=== PATIENT | female | born 1990 | race Caucasian/White ===

== ENCOUNTER 2020-02-01 10:02 | Outpatient (CLI) | payer OTHER, SELFPAY ==
--- NOTE | ~2020-02-01 | US_ITS ---
EXAMINATION: US OB <= 14 weeks fetus DATE: 02/01/2020 14:09 INDICATION: Irregular last menstrual period gestational dating. TECHNIQUE: Real-time transabdominal obstetric ultrasound. FINDINGS: No prior studies for comparison. The uterus measures 12.8 x 5.9 x 6.6 cm. There is an intrauterine gestational sac, with pole id entified. The crown rump length measures 3.33 cm, which correlates with a estimated gestational age of 10 weeks 2 days. heart tones are identified measuring 171 BPM. Right ovary is unremarkable measuring 3.5 x 2.3 x 2.1 cm. Left ovary is not visualized. IMPRESSION: 1. SL IUP with an EGA of 10 weeks, 2 days (EDC by current ultrasound of 08/31/2020). Reviewed, dictated and finalized at location A. IMPRESSION: 1. SL IUP with an EGA of 10 weeks, 2 days (EDC by current ultrasound of 020).
[2020-02-01 10:34] LABS: Hematocrit 38.7 % (37.0-47.0); Hemoglobin 12.9 g/dL (12.0-15.0); Mean Corpuscular HGB Conc 33.3 g/dl (32-36); Mean Corpuscular Hemoglobin 30.4 pg (26-34); Mean Corpuscular Volume 91.1 fl (80-100); Mean Platelet Volume 9.6 fl (7.4-10.4); Platelet Count Result 236 k/mm3 (150-375); Red Blood Count 4.25 M/mm3 (4.2-5.4); White Blood Count 8.5 K/mm3 (4.5-10.0)
[2020-02-01 11:30] LABS: HIV 1/2 Ab P24 Ag Result Negative (Negative)
[2020-02-01 11:31] LABS: Hepatitis B Surface Antigen Negative (Negative); Rubella IgG Antibody 19.6 IU/ML
[2020-02-02 16:07] LABS: Rapid Plasma Reagin Non-Reactive (NonReactive)
== END 2020-02-01 10:03 | disposition home or self-care (01) ==
PROVIDERS: PCP Family Medicine; Visit Provider Obstetrics & Gynecology
DX: Z36.89 Encounter for other specified antenatal screening (principal); Z3A.10 10 weeks gestation of pregnancy
CPT/HCPCS: 36415; 76801; 85027; 86592; 86703; 86762; 86850; 86900; 86901; 87340; G0432

== ENCOUNTER 2020-04-02 09:19 | Outpatient (CLI) | payer OTHER, SELFPAY ==
[2020-04-02 10:22] LABS: Blood Urea Nitrogen 7 mg/dL (7-17); Calcium 9.2 mg/dL (8.4-10.2); Carbon Dioxide 25 mmol/L (22-30); Chloride 104 mmol/L (98-107); Estimated Glomerular Filt Rate > 60; Glucose 84 mg/dL (65-105); Magnesium 1.7 mg/dL (1.6-2.3); Potassium 3.9 mmol/L (3.4-5.0); Sodium 136 mmol/L (137-145)
== END 2020-04-02 09:20 | disposition home or self-care (01) ==
LOC: ANHLAB 09:22
PROVIDERS: PCP Family Medicine; Visit Provider Obstetrics & Gynecology
DX: R00.2 Palpitations (principal)
CPT/HCPCS: 36415; 80048; 83735; 84443

== ENCOUNTER 2020-05-24 15:41 | Outpatient (CLI) | payer OTHER, SELFPAY ==
[2020-05-24 17:55] LABS: Hematocrit 37.7 % (37.0-47.0); Hemoglobin 12.7 g/dL (12.0-15.0)
[2020-05-24 18:06] LABS: Glucose 1 Hour PP 50gm Dose 144 mg/dL
[2020-05-24 18:47] LABS: HIV 1/2 Ab P24 Ag Result Negative (Negative)
== END 2020-05-24 15:42 | disposition home or self-care (01) ==
PROVIDERS: PCP Family Medicine; Visit Provider Obstetrics & Gynecology
DX: Z34.90 Encounter for supervision of normal pregnancy, unspecified, unspecified trimester (principal); Z3A.00 Weeks of gestation of pregnancy not specified
CPT/HCPCS: 36415; 82947; 85014; 85018; 86703; G0432

== ENCOUNTER 2020-08-07 08:27 | Inpatient (IN) | payer OTHER, SELFPAY ==
[2020-08-07] VITALS (125 sets, daily range): BP systolic 65–160; BP diastolic 40–130; PULSE 58–193; TEMP 36.1–36.6; O2SAT 98–100; BMI 46.5
--- NOTE | 2020-08-07 08:27 | LDADM ---
This patient, Gabriela Agudelo, was admitted to Labor/Delivery/Recovery 109 on 08/07/20 at 08:27. Plans for labor, pain management and were discussed with patient. Patient/family oriented to hospital policies and general routines including ID bracelet, bed and alarms, visiting hours, pain management, procedures, bathroom and other care routines, personal items, smoking policy, room service/diet and guest tray routines, security routines, and visiting hours. Patient/Family are encouraged to report perceived risks to care and to ask questions if they do not understand what they are told or what they should do. See OBIX for further documentation.
--- NOTE | 2020-08-07 08:45 | WPDOBADMIT ---
Obstetrics - Admit Note Admission Note: record reviewed. Additions to the history and/or subsequent changes in the physical findings follow. 30 y/o at 37 3/7 weeks here with gush of fluid. Irregular contractions. GBS neg. RomPlus positive. AVSS NST reactive TOCO: irregular contractions ABD soft, nontender, gravid, vertex EXT nontender Cervix 2/50/-2. Gross ROM. A: IUP at term with SROM. P: Expectant management. Augment labor as needed.
[2020-08-07 10:10] LABS: Basophils Percent Auto 0.1 % (0.2-1.2); Hematocrit 38.2 % (37.0-47.0); Hemoglobin 12.8 g/dL (12.0-15.0); Immature Granulocyte Absolute 0.04 K/mm3 (0.00-0.031); Immature Granulocyte Percent A 0.4 % (0-0.5); Lymphocytes Absolute Auto 1.52 K/mm3 (0.9-3.2); Lymphocytes Percent Auto 13.7 % (18.3-44.2); Mean Corpuscular HGB Conc 33.5 g/dl (32-36); Mean Corpuscular Hemoglobin 30.5 pg (26-34); Mean Corpuscular Volume 91.2 fl (80-100); Mean Platelet Volume 11.3 fl (7.4-10.4); Monocytes Absolute Auto 0.8 K/mm3 (0.1-0.6); Monocytes Percent Auto 6.9 % (2.6-8.5); Neutrophils Absolute Auto 8.8 K/mm3 (1.3-6.7); Neutrophils Percent Auto 78.9 % (45.5-73.1); Platelet Count Result 204 k/mm3 (150-375); Red Blood Count 4.19 M/mm3 (4.2-5.4); Red Cell Distribution Width 13.8 % (11.5-14.5); White Blood Count 11.1 K/mm3 (4.5-10.0)
[2020-08-07 10:25] LABS: Alanine Aminotransferase 13 U/L (4-35); Albumin Level 3.6 g/dL (3.5-5.1); Alkaline Phosphatase 211 U/L (38-126); Anion Gap 9 mmol/L (8-16); Aspartate Amino Transferase 21 U/L (14-36); Bilirubin,Total 0.3 mg/dL (0.2-1.3); Blood Urea Nitrogen 10 mg/dL (7-17); Calcium 9.2 mg/dL (8.4-10.2); Carbon Dioxide 23 mmol/L (22-30); Chloride 108 mmol/L (98-107); Estimated CRCL calculation 150 ml/min; Estimated Glomerular Filt Rate > 60; Glucose 79 mg/dL (65-105); Potassium 4.2 mmol/L (3.4-5.0); Sodium 140 mmol/L (137-145); Uric Acid 4.5 mg/dL (2.5-7.5)
--- NOTE | 2020-08-07 10:31 | WPDANESEPP ---
Anes - Eval Pre Procedure Procedure: labor epidural Date/Time: 08/07/20 10:31 Preop Diagnosis: labor pain Pre Op Diagnosis: SROM Patient Data Age: 30 Gender: F Height: 1.73 m Weight: 139 kg Last Vital Signs Temp 36.3 C L 08/07/20 08:50 Pulse 80 08/07/20 10:31 BP 136/89 08/07/20 10:31 Allergies Allergy/AdvReac Type Severity Reaction Status Date / Time No Known Drug Allergies Allergy Unknown Other Verified 08/13/18 07:38 Home Medications Medication Instructions Recorded Confirmed Type [id number] fumarate-FA 1 tablet PO DAILY 07/28/20 08/07/20 History [] Laboratory Tests 08/07/20 08/07/20 08/07/20 09: 09:27 09:59 WBC 11.1 K/mm3 H K/mm3 (4.5-10.0) RBC 4.19 M/mm3 L M/mm3 (4.2-5.4) Hgb 12.8 g/dL g/dL (12.0-15.0) Hct 38.2 % % (37.0-47.0) MCV 91.2 fl fl (80-100) MCH 30.5 pg pg (26-34) MCHC 33.5 g/dl g/dl (32-36) RDW 13.8 % % (11.5-14.5) Plt Count 204 k/mm3 k/mm3 (150-375) MPV 11.3 fl H fl (7.4-10.4) Immature Gran % (Auto) 0.4 % % (0-0.5) Neut % (Auto) 78.9 % H % (45.5-73.1) Lymph % (Auto) 13.7 % L % (18.3-44.2) Price % (Auto) 6.9 % % (2.6-8.5) Eos % (Auto) 0.0 % % (0-4.4) Baso % (Auto) 0.1 % L % (0.2-1.2) Lymph # (Auto) 1.52 K/mm3 K/mm3 (0.9-3.2) [place] # (Auto) 0.8 K/mm3 H K/mm3 (0.1-0.6) Eos # (Auto) 0.0 K/mm3 K/mm3 (0-0.3) Baso # (Auto) 0.0 K/mm3 K/mm3 (0.0-0.1) Abs Immat Gran (auto) 0.04 K/mm3 H K/mm3 (0.00-0.031) Absolute Neuts (auto) 8.8 K/mm3 H K/mm3 (1.3-6.7) Absolute Nucleated RBC 0.0 K/mm3 K/mm3 (0.0-0.012) Nucleated RBC % 0.0 % % (0.0-0.2) Sodium 140 mmol/L mmol/L (137-145) Potassium 4.2 mmol/L mmol/L (3.4-5.0) Chloride 108 mmol/L H mmol/L (98-107) Carbon Dioxide 23 mmol/L mmol/L (22-30) Anion Gap 9 mmol/L mmol/L (8-16) BUN 10 mg/dL mg/dL (7-17) Creatinine 0.70 mg/dL mg/dL (0.7-1.0) Estim Creat Clear Calc 150 ml/min ml/min Estimated GFR > 60 (59 - ) Glucose 79 mg/dL mg/dL (65-105) Uric Acid 4.5 mg/dL mg/dL (2.5-7.5) Calcium 9.2 mg/dL mg/dL (8.4-10.2) Total Bilirubin 0.3 mg/dL mg/dL (0.2-1.3) AST 21 U/L U/L (14-36) ALT 13 U/L U/L (4-35) Alkaline Phosphatase 211 U/L H U/L (38-126) Total Protein 6.0 g/dL L g/dL (6.3-8.2) Albumin 3.6 g/dL g/dL (3.5-5.1) RPR Pending Patient hx anesthesia problems: none Family hx anesthesia problems: none PMFSH Family History Family History Mother Hypertension Father Family history of diabetes mellitus in first degree relative Social History Social History Smoking status: Never smoker Second hand tobacco smoke exposure: No Alcohol intake: current Substance use: never Living arrangements: with family Occupation/Education: occupation Gender identity (if verbalized by the patient): Female Sexual Orientation (if Verbalized by the Patient): Straight or Heterosexual Spiritual care concerns: No Agree to blood products: Yes Exam Day of Procedure 08/07/20 10:31 Patient weight: obese Heart: regular rate and rhythm Lungs: normal air movement Airway: Mallampati scale class II Neurological: alert and oriented
[2020-08-07] MEDS: LACTATED RINGERS 1,000 ML 125 ML IV CONT ×3 (12:39→16:37)
[2020-08-07] MEDS: OXYTOCIN 30 UNITS/NS 500 ML 30 UNITS/500 ML BAG IV CONT (14:10)
[2020-08-07] MEDS: SODIUM CHLORIDE 0.9% IV 300 ML 180 ML I-UTERINE (15:37)
[2020-08-07 16:33] LABS: Add Urine Microscopic? YES; Appearance Urine Clear (Clear); Bilirubin Urine Negative (Negative); Blood Urine 3+ (Negative); Color Urine Straw (Yellow); Glucose Urine UA Negative (Negative); Ketones Urine 1+ mg/dL (Negative); Leukocyte Esterase Ur Negative LEU/UL (NEGATIVE); Mucus Urine Rare /lpf; Nitrate Urine Negative (Negative); Protein Urine Negative (Negative); RBC Urine 21-50 /hpf (0-2); Specific Grav Ur 1.012 (1.001-1.035); Squamous Epithelial Cell Urine Rare /hpf (Few); Urobilinogen Urine Negative mg/dL (<2.0)
[2020-08-07] MEDS: ACETAMINOPHEN 500 MG TABLET 1000 MG PO (18:16)
--- NOTE | 2020-08-07 21:14 | PM.OBPRVD ---
OB - Delivery Note Procedure Delivery date: 08/07/20 Induction method: none Delivery monitor: external FHT, external uterine and internal uterine Route of delivery: Laceration description: Perineal - 2nd Degree Delivery repair: vicryl (3-0) Specimen: Yes (cord blood) Estimated blood loss (mL): 140 Anesthesia type: Epidural Disposition: PACU Complications: None Narrative: 30 y/o at 37 3/7 weeks gestation who presented to the hospital after a gush of fluid. RomPlus was positive and she was admitted. She received an epidural for pain control. Labor was augmented with oxytocin. Her labor progressed and her cervix dilated completely. She pushed with good effort and delivered the 's head to the perineum, followed by the body. The nose and mouth were bulb suctioned. After a delay, the cord was clamped and cut. The infant was handed off the field. Cord blood was collected. The placenta delivered spontaneously and was grossly normal in appearance. The usual 3 vessel cord was noted. A second degree midline perineal laceration was sustained. This was reapproximated using 3 0 Vicryl in the usual layered fashion. Excellent hemostasis resulted as did excellent reapproximation of the normal anatomy. Needle and instrument counts were correct. The patient was taken to recovery room in stable condition. The infant went to the nursery in stable condition. I was present and scrubbed for the entire delivery. Baby Date of : 08/07/20 Time of : 20:46 Weeks of gestation at delivery: 37 gender: Male Weight (pounds): 5 Weight (ounces): 11 presentation: vertex position: Left Occiput Anterior cord vessel description: 3 Vessels score one minute: 8 score five minutes: 9
--- NOTE | 2020-08-07 21:16 | PM.OBDSVD ---
DS: Admitting Diagnosis Admitting Diagnosis Admitting Diagnosis: SROM DS: Discharge Diagnosis Discharge Diagnosis (1) (normal spontaneous vaginal delivery): Code(s): O80 - Encounter for full-term uncomplicated delivery Status: Acute OB - DS: Summary OB Procedures : None OB Procedures Intrapartum: Spontaneous Vag Delivery OB Procedures: : None DS: Data Data Completed and Pending Labs on day of discharge: Labs from last 24 hours 08/07/20 08/07/20 08/07/20 15:42 09:59 09:27 WBC RBC Hgb Hct MCV MCH MCHC RDW Plt Count MPV Immature Gran % (Auto) Neut % (Auto) Lymph % (Auto) [place] % (Auto) Eos % (Auto) Baso % (Auto) Lymph # (Auto) [place] # (Auto) Eos # (Auto) Baso # (Auto) Abs Immat Gran (auto) Absolute Neuts (auto) Absolute Nucleated RBC Nucleated RBC % Sodium 140 Potassium 4.2 Chloride 108 H Carbon Dioxide 23 Anion Gap 9 BUN 10 Creatinine 0.70 Estim Creat Clear Calc 150 Estimated GFR > 60 Glucose 79 Uric Acid 4.5 Calcium 9.2 Total Bilirubin 0.3 AST 21 ALT 13 Alkaline Phosphatase 211 H Total Protein 6.0 L Albumin 3.6 Urine Color Straw Urine Appearance Clear Urine pH 6.0 Ur Specific [place] 1.012 Urine Protein Negative Urine Glucose (UA) Negative Urine Ketones 1+ H Ur Blood (Man) 3+ H Urine Nitrate Negative Urine Bilirubin Negative Urine Urobilinogen Negative Ur Leukocyte Esterase Negative Urine RBC 21-50 H Urine WBC 4-6 H Ur Squamous Epith Cells Rare Urine Mucus Rare RPR Blood Type A Positive Antibody Screen Negative 08/07/20 08/07/20 09:27 09:27 WBC 11.1 H RBC 4.19 L Hgb 12.8 Hct 38.2 MCV 91.2 MCH 30.5 MCHC 33.5 RDW 13.8 Plt Count 204 MPV 11.3 H Immature Gran % (Auto) 0.4 Neut % (Auto) 78.9 H Lymph % (Auto) 13.7 L [place] % (Auto) 6.9 Eos % (Auto) 0.0 Baso % (Auto) 0.1 L Lymph # (Auto) 1.52 [place] # (Auto) 0.8 H Eos # (Auto) 0.0 Baso # (Auto) 0.0 Abs Immat Gran (auto) 0.04 H Absolute Neuts (auto) 8.8 H Absolute Nucleated RBC 0.0 Nucleated RBC % 0.0 Sodium Potassium Chloride Carbon Dioxide Anion Gap BUN Creatinine Estim Creat Clear Calc Estimated GFR Glucose Uric Acid Calcium Total Bilirubin AST ALT Alkaline Phosphatase Total Protein Albumin Urine Color Urine Appearance Urine pH Ur Specific [place] Urine Protein Urine Glucose (UA) Urine Ketones Ur Blood (Man) Urine Nitrate Urine Bilirubin Urine Urobilinogen Ur Leukocyte Esterase Urine RBC Urine WBC Ur Squamous Epith Cells Urine Mucus RPR Pending Blood Type Antibody Screen Discharge Plan Discharge Attending physician on discharge: Casey Barcenas Discharging Clinician: Casey Barcenas Patient Disposition: Home, Self-Care Activity: pelvic rest Diet: regular Discharge Instructions: Call or return if temperature above 100.4? F, increased abdominal pain, increased vaginal bleeding or any new problems. Stand Alone Forms: General Discharge Information Follow-up/Referrals: Casey Barcenas MD [Physician] - (6 weeks) Discharge Medications: New ibuprofen 600 mg tablet 600 mg PO Q6H PRN (Reason: cramps) Qty: 30 RF: 0 No Action 28-800 mg-mcg Tablet 1 tablet PO DAILY RF: 0 Date of admission: 08/07/20 08:27 Primary Care Provider: Arley Land Admitting Provider: Casey Barcenas Attending physician on admission: Casey Barcenas
[2020-08-07] MEDS: OXYTOCIN 30 UNITS/NS 500 ML 30 UNITS/500 ML BAG 125 UNITS IV CONT (21:27)
[2020-08-07] MEDS: IBUPROFEN 600 MG TABLET PO (22:32)
[2020-08-07] MEDS: WITCH HAZEL 40 PADS 1 PAD TOPICAL (23:07)
[2020-08-07] MEDS: BENZOCAINE 20% AER SPR (*SP) 56 GM CAN 1 SPRAY TOPICAL (23:07)
--- NOTE | 2020-08-07 23:50 | PC.NURSE ---
This patient, Gabriela Agudelo, was received from Labor and Delivery on 08/07/20 at 2343. Personal belongings list checked and signed. Patient/family oriented to unit policies and routines
[2020-08-08 00:31] VITALS: BP 143/88; PULSE 92; RESP 18; TEMP 36.4; O2SAT 98
[2020-08-08 04:30] LABS: Hematocrit 36.5 % (37.0-47.0); Hemoglobin 12.1 g/dL (12.0-15.0)
[2020-08-08] MEDS: IBUPROFEN 600 MG TABLET PO ×3 (05:36→22:01)
[2020-08-08 07:45] VITALS: BP 133/89; PULSE 84; RESP 16; TEMP 36.9; O2SAT 98
[2020-08-08] MEDS: MULTIVIT/MIN/PREN/FOL AC/IRON TABLET 1 TAB PO (08:12)
--- NOTE | 2020-08-08 08:28 | WPDANLDPN2 ---
Anes-Prog Note L&D Date/Time: 08/08/20 08:28 Comfortable throughout: labor and delivery Neuraxial method: epidural Epidural/Spinal procedure site: clean & non-tender Neuro status: Neuro function grossly intact. Cardiovascular status: normal Respiratory status: normal Airway patency: baseline Mental status: baseline Post-Op hydration status: normal Vital Signs: Last Vital Signs Temp 36.4 C 08/08/20 00:31 Pulse 92 08/08/20 00:31 Resp 18 08/08/20 00:31 BP 143/88 H 08/08/20 00:31 Pulse Ox 98 08/08/20 00:31 Pain score (VAS): 11/20 I/O: Intake & Output 08/07/20 08/08/20 08/08/20 23:59 07:59 15:59 Intake Total 1500 Output Total 685 Balance 815 Post-procedural complaints: none Patient feedback: Patient satisfied with anesthetic care.
--- NOTE | 2020-08-08 10:02 | PC.NURSE ---
Patient instructed on viewing the discharge video Mother & Baby Care, The First Two Weeks . Patient was given the opportunity and encouraged to ask questions. Patient verbalized understanding of information shared and has been given the mother/baby guide for home reference.
[2020-08-08 11:43] LABS: Rapid Plasma Reagin Non-Reactive (NonReactive)
--- NOTE | 2020-08-08 12:00 | P.PNOB_ITS ---
OB - PN: Subj Subjective Date/time seen: 08/08/20 12:00 Narrative: Pain OK. Would like circumcision for son. OB - PN: Obj Data Labs CBC & Chem 7: 08/08/20 04:10 08/07/20 09:59 Labs: Laboratory Results - last 24 hr 08/07/20 08/07/20 08/07/20 09:27 09:27 15:42 Hgb Hct Urine Color Straw Urine Appearance Clear Urine pH 6.0 Ur Specific [place] 1.012 Urine Protein Negative Urine Glucose (UA) Negative Urine Ketones 1+ H Ur Blood (Man) 3+ H Urine Nitrate Negative Urine Bilirubin Negative Urine Urobilinogen Negative Ur Leukocyte Esterase Negative Urine RBC 21-50 H Urine WBC 4-6 H Ur Squamous Epith Cells Rare Urine Mucus Rare RPR Non-reactive Blood Type A Positive Antibody Screen Negative 08/08/20 04:10 Hgb 12.1 Hct 36.5 L Urine Color Urine Appearance Urine pH Ur Specific [place] Urine Protein Urine Glucose (UA) Urine Ketones Ur Blood (Man) Urine Nitrate Urine Bilirubin Urine Urobilinogen Ur Leukocyte Esterase Urine RBC Urine WBC Ur Squamous Epith Cells Urine Mucus RPR Blood Type Antibody Screen OB - PN A/P Plan Comments: A: PPD#1, doing well. P: Routine care. Reviewed circ. Exam Psych: Other: AVSS ABD soft, nontender, fundus firm EXT nontender
[2020-08-08 19:07] VITALS: BP 145/90; PULSE 85; RESP 18; TEMP 36.3; O2SAT 98
[2020-08-09] MEDS: IBUPROFEN 600 MG TABLET PO ×2 (05:55→15:32)
[2020-08-09 07:50] VITALS: BP 138/77; PULSE 86; RESP 16; TEMP 37.2; O2SAT 100
[2020-08-09] MEDS: MULTIVIT/MIN/PREN/FOL AC/IRON TABLET 1 TAB PO (08:16)
[2020-08-09] MEDS: WITCH HAZEL 40 PADS 1 PAD TOPICAL (08:21)
[2020-08-09] MEDS: BENZOCAINE 20% AER SPR (*SP) 56 GM CAN 1 SPRAY TOPICAL (08:22)
--- NOTE | 2020-08-09 08:49 | PM.OBPNVD ---
OB - PN: Subj Subjective Date/time seen: 08/09/20 08:49 Narrative: Pain OK. Would like to go home. OB - PN: Obj Data Labs CBC & Chem 7: 08/08/20 04:10 08/07/20 09:59 Labs: Laboratory Results - last 24 hr 08/07/20 09:27 RPR Non-reactive OB - PN A/P Plan Comments: A: PPD#2, doing well. P: Home to f/u 6 weeks. Exam Psych: Other: AVSS ABD soft, nontender, fundus firm EXT nontender
--- NOTE | 2020-08-09 12:00 | PC.NURSE ---
PT introductions made and plan of care discussed per post , pain management, breast feeding, daily care activities and pending discharge to home. PT verbalized understanding of such care.
[2020-08-09] MEDS: DOCUSATE SODIUM 100 MG CAPSULE PO (15:32)
[2020-08-09] MEDS: LANOLIN (LANSINOH) 7.5 GM CREAM 1 APPLIC TOPICAL (15:33)
--- NOTE | 2020-08-09 16:15 | PC.NURSE ---
PT received discharge instructions per protocol and verbalized understanding of such instructions.
[2020-08-12 09:26] VITALS: BP 142/83; PULSE 83; RESP 20; O2SAT 99
== END 2020-08-09 16:41 | disposition home or self-care (01) | DRG 807 ==
LOC: ANHLDR 21:17 → ANHOB2 08-08 00:01
PROVIDERS: Admitting Provider Obstetrics & Gynecology; PCP Family Medicine; Visit Provider Obstetrics & Gynecology
DX: O99.214 Obesity complicating childbirth (principal); Z37.0 Single live birth; Z3A.37 37 weeks gestation of pregnancy; E66.9 Obesity, unspecified; O36.8330 Maternal care for abnormalities of the fetal heart rate or rhythm, third trimester, not applicable or unspecified; Z23 Encounter for immunization; O70.1 Second degree perineal laceration during delivery
CPT/HCPCS: 36415; 80053; 81001; 84550; 85014; 85018; 85025; 86592; 86850; 86900; 86901; 90471; 90686; A9270; G0008; J2590; J2795; J7030; J7120

== ENCOUNTER 2022-10-09 18:12 | Emergency (ER) | payer OTHER, SELFPAY ==
[2022-10-09 18:15] VITALS: BP 131/75; PULSE 99; RESP 16; TEMP 37.8; O2SAT 100
--- NOTE | 2022-10-09 19:08 | ED.URI ---
HPI - URI/Sore Throat General Chief Complaint: Upper Respiratory Infection Stated Complaint: COUGH/CHEST CONGESTION/PAIN/HEADACHE Time Seen by Provider: 10/09/22 19:08 Source: patient, RN notes reviewed and old records reviewed Mode of arrival: ambulatory Limitations: no limitations History of Present Illness HPI Narrative: 32-year-old female presents to the [facility] with complaints of chest congestion, cough, headache since Saturday. Concern for influenza. Patient is [address] Hernandez Related Data Home Medications Medication Instructions Recorded Confirmed ondansetron HCl 4 mg tablet 4 mg PO DIRECTED 10/09/22 10/09/22 Allergies Allergy/AdvReac Type Severity Reaction Status Date / Time No Known Drug Allergies Allergy Unknown Other Verified 10/09/22 19:05 Review of Systems Review of Systems: All systems reviewed & are unremarkable except as noted in HPI and below Constitutional: Constitutional: Reports as per HPI and Reports fever(s) Eyes: Eyes: Reports no additional eye complaints ENT: Reports as per HPI Cardiovascular: Cardiovascular: Reports no additional cardiovascular complaints, Denies chest pain and Denies dyspnea Respiratory: Respiratory: Reports as per HPI, Denies chest congestion, Reports cough and Denies dyspnea Gastrointestinal: Gastrointestinal: Reports no additional gastrointestinal complaints Musculoskeletal: Musculoskeletal: Reports no additional musculoskeletal complaints Integumentary/Breasts: Skin/Breast: Reports system reviewed and no additional complaints, except as docu Neurologic: Reports system reviewed and no additional complaints, except as documented Psychiatric: Psychiatric: Reports no additional psychiatric complaints Allergic/Immunologic: Allergic/Immunologic: Reports no additional allergic/immunologic complaints PMFSH Past Medical History Medical History Degenerative arthritis of knee, bilateral Surgical History Surgical History H/O hand surgery 2011 History of cholecystectomy 2014 Family History Family History Mother Hypertension Father Family history of diabetes mellitus in first degree relative Social History Social History Smoking status: Never smoker Second hand tobacco smoke exposure: No Alcohol intake: current Substance use: never Additional occupation/education comments: [employer] Gender identity (if verbalized by the patient): Female Sexual Orientation (if Verbalized by the Patient): Straight or Heterosexual Spiritual care concerns: No Agree to blood products: Yes Comments At the time of my signature, I reviewed and agree with the nursing past medical, surgical, social, and family history. There is no relevant family history pertinent to the patient complaint. Exam Const: General: cooperative, healthy appearing, comfortable, no acute distress, well developed, alert and average body habitus Nutritional Appearance: average body habitus Orientation/consciousness: patient oriented x3 Limitations: no limitations HENMT: Head: normal to inspection Ears: hearing grossly normal bilaterally Face/Nose/Sinus: Normal external nose present, Normal nares present, Normal nasal mucous membranes and turbinates present and normal facial exam Face and sinus: normal facial exam Mouth: Yes Normal oral and palatal mucosa present, Yes lip normal and Yes moist mucous membranes Throat: posterior oropharynx normal and uvula midline Eyes: General: appearance normal, both eyes and all related structures Alignment and Position: alignment normal Periorbital: periorbital findings normal Conjunctivae: conjunctivae normal Pupils: Equal, round and reactive pupils present EOM: EOMs intact bilaterally Neck:
== END 2022-10-09 19:28 | disposition home or self-care (01) ==
PROVIDERS: Emergency Provider Nurse Practitioner
DX: O99.512 Diseases of the respiratory system complicating pregnancy, second trimester (principal); Z3A.15 15 weeks gestation of pregnancy; J10.1 Influenza due to other identified influenza virus with other respiratory manifestations; O99.891 Other specified diseases and conditions complicating pregnancy; M17.0 Bilateral primary osteoarthritis of knee
CPT/HCPCS: 87804; 99213; G0463

== ENCOUNTER 2023-03-12 17:05 | Inpatient (IN) | payer OTHER, SELFPAY ==
[2023-03-12] VITALS (62 sets, daily range): BP systolic 116–146; BP diastolic 53–95; PULSE 58–95; TEMP 36.7–37; O2SAT 94–100; BMI 45.1
--- NOTE | 2023-03-12 17:05 | LDADM ---
This patient, Gabriela Agudelo, was admitted to Labor/Delivery/Recovery 108 on 03/12/23 at 17:05. Plans for labor, pain management and were discussed with patient. Patient/family oriented to hospital policies and general routines including ID bracelet, bed and alarms, visiting hours, pain management, procedures, bathroom and other care routines, personal items, smoking policy, room service/diet and guest tray routines, security routines, and visiting hours. Patient/Family are encouraged to report perceived risks to care and to ask questions if they do not understand what they are told or what they should do. See OBIX for further documentation.
[2023-03-12] MEDS: LACTATED RINGERS 1,000 ML 125 ML IV CONT ×2 (19:21→20:58)
[2023-03-12 19:36] LABS: Hematocrit 39.1 % (37.0-47.0); Immature Granulocyte Absolute 0.04 K/mm3 (0.00-0.031); Immature Granulocyte Percent A 0.4 % (0-0.5); Immature Platelet Fraction Pct 10.6 % (0.9-11.2); Lymphocytes Absolute Auto 1.94 K/mm3 (0.9-3.2); Lymphocytes Percent Auto 18.7 % (18.3-44.2); Mean Corpuscular HGB Conc 33.2 g/dl (32-36); Mean Corpuscular Hemoglobin 30.6 pg (26-34); Mean Platelet Volume 12.1 fl (7.4-10.4); Monocytes Absolute Auto 0.7 K/mm3 (0.1-0.6); Monocytes Percent Auto 6.4 % (2.6-8.5); Neutrophils Absolute Auto 7.8 K/mm3 (1.3-6.7); Neutrophils Percent Auto 74.5 % (45.5-73.1); Platelet Count Result 191 k/mm3 (150-375); Red Blood Count 4.25 M/mm3 (4.2-5.4); Red Cell Distribution Width 13.8 % (11.5-14.5); White Blood Count 10.4 K/mm3 (4.5-10.0)
[2023-03-12 19:51] LABS: Platelet Estimate Adequate (Adequate); Schistocytes None Seen (NORMAL)
--- NOTE | 2023-03-12 19:59 | WPDANESEPPF ---
Anes - Initial Pre Proc Eval Procedure: labor epidural Date/Time: 03/12/23 19:59 Surgeon: Casey Barcenas MD Pre Op Diagnosis: labor pain Pre Op Diagnosis: Contractions Patient Data Age: 33 Gender: F Height: 1.73 m Weight: 134.5 kg Last Vital Signs O2 Del Method Room Air 03/12/23 19:29 Allergies Allergy/AdvReac Type Severity Reaction Status Date / Time No Known Drug Allergies Allergy Unknown Other Verified 10/09/22 19:05 Home Medications Medication Instructions Recorded Confirmed Type vit#24-iron amino acid 1 tablet PO DAILY 02/12/23 03/12/23 History chelat-folic acid 30 mg-975 mcg tablet Laboratory Tests 03/12/23 19:21 WBC 10.4 H K/mm3 (4.5-10.0) RBC 4.25 M/mm3 (4.2-5.4) Hgb 13.0 g/dL (12.0-15.0) Hct 39.1 % (37.0-47.0) MCV 92.0 fl (80-100) MCH 30.6 pg (26-34) MCHC 33.2 g/dl (32-36) RDW 13.8 % (11.5-14.5) Plt Count 191 k/mm3 (150-375) MPV 12.1 H fl (7.4-10.4) Immature Gran % (Auto) 0.4 % (0-0.5) Neut % (Auto) 74.5 H % (45.5-73.1) Lymph % (Auto) 18.7 % (18.3-44.2) [place] % (Auto) 6.4 % (2.6-8.5) Eos % (Auto) 0.0 % (0-4.4) Baso % (Auto) 0.0 L % (0.2-1.2) Lymph # (Auto) 1.94 K/mm3 (0.9-3.2) [place] # (Auto) 0.7 H K/mm3 (0.1-0.6) Eos # (Auto) 0.0 K/mm3 (0-0.3) Baso # (Auto) 0.0 K/mm3 (0.0-0.1) Abs Immat Gran (auto) 0.04 H K/mm3 (0.00-0.031) Absolute Neuts (auto) 7.8 H K/mm3 (1.3-6.7) Absolute Nucleated RBC 0.0 K/mm3 (0.0-0.012) Nucleated RBC % 0.0 % (0.0-0.2) Platelet Estimate Adequate (Adequate) % Immature Plt Fraction 10.6 % (0.9-11.2) Schistocytes None seen (NORMAL) RPR Pending Patient hx anesthesia problems: none Family hx anesthesia problems: none Results Review: All pre-operative results and documents have been reviewed as part of the pre-operative evaluation. [facility] Past Medical History Medical History Degenerative arthritis of knee, bilateral Surgical History Surgical History H/O hand surgery 2011 History of cholecystectomy 2014 Family History Family History Mother Hypertension Father Family history of diabetes mellitus in first degree relative Social History Social History Smoking status: Never smoker Second hand tobacco smoke exposure: No Alcohol intake: current Substance use: never Lack of Transportation: No Lack of Food: Never True Current Housing: I Have Housing Concerned About Future Housing: No Difficulty Paying Gas/Electric Bills: No Difficulty Paying for Meds: No Currently Unemployed: No Education: Bachelor's Degree Difficulty w/ Childcare or Family Care: No Living arrangements: with family Occupation/Education: occupation Additional occupation/education comments: [employer] Gender identity (if verbalized by the patient): Female Sexual Orientation (if Verbalized by the Patient): Straight or Heterosexual Spiritual care concerns: No Agree to blood products: Yes Anes - Eval Final PreProcedure Day of Procedure 03/12/23 19:59 Patient weight: morbidly obese ASA classification: III Anesthetic plan: proceed Anesthesia type and monitoring: regional epidural and standard monitoring Results Review: All pre-operative results and documents have been reviewed as part of the pre-operative evaluation. Informed Consent: The patient's anesthetic plan and its attendant risks and benefits were discussed with the patient/family/POA. Questions were solicited and answers provided to the satisfaction of the patient/family/POA.
[2023-03-13] VITALS (245 sets, daily range): BP systolic 96–147; BP diastolic 49–104; PULSE 38–112; RESP 16–20; TEMP 36.4–36.9; O2SAT 73–100
[2023-03-13] MEDS: ONDANSETRON INJ 4 MG/2 ML VIAL IV PUSH (00:21)
[2023-03-13] MEDS: LACTATED RINGERS 1,000 ML 125 ML IV CONT ×2 (04:09→12:26)
[2023-03-13] MEDS: OXYTOCIN 30 UNITS/NS 500 ML 30 UNITS/500 ML BAG IV CONT (08:37)
[2023-03-13 10:03] LABS: Rapid Plasma Reagin Non-Reactive (NonReactive)
--- NOTE | 2023-03-13 11:37 | WPDOBADMIT ---
Obstetrics - Admit Note Admission Note: Late entry from 0900 on 03/13/23 record reviewed. Additions to the history and/or subsequent changes in the physical findings follow. 33 y/o at 37 5/7 weeks here with contractions. Cervix changed from 1 to 4 cm, and labor was diagnosed. She received an epidural for pain control. GBS neg. AVSS NST reactive TOCO: contractions every 3 min ABD soft, nontender, gravid, vertex EXT nontender Cervix 5/50/-2. AROM with clear fluid. IUPC placed. Bedside ultrasound by me confirmed vertex presentation. A: IUP at term with labor. P: Augment labor as needed. Anticipate .
--- NOTE | 2023-03-13 11:42 | PM.OBPNLAB ---
Pain Control Date/time seen: 03/13/23 11:42 Comments: Comfortable with epidural. Pelvic Exam Dilation (cm): 6 Effacement (%): 50 station: -2 Contractions Monitor mode: Internal Contraction frequency: 3 Contraction pattern: Regular Status status: Category l Assessment and Plan Plan: continuous present management
--- NOTE | 2023-03-13 14:15 | PM.OBPRVD ---
OB - Delivery Note Procedure Delivery date: 03/13/23 Procedure: Induction method: None Delivery augmentation: Rupture of Membranes and Pitocin Delivery monitor: External FHT, External Uterine and Internal Uterine Route of delivery: Laceration Description: Perineal - 2nd Degree and Vaginal Delivery repair: vicryl (3-0) Specimen: Yes (Cord blood) Quantitative Blood Loss (ml): 140 Anesthesia type: Epidural Disposition: PACU Complications: None Narrative: 33 y/o at 37 5/7 weeks gestation who presented to the hospital with contractions. Labor was diagnosed. She received an epidural for pain control. Labor was subsequently augmented with oxytocin. Amniotomy was performed with return of clear fluid. Her labor progressed and her cervix dilated completely. She pushed with good effort and delivered the 's head to the perineum, followed by the body. The nose and mouth were bulb suctioned. After a delay, the cord was clamped and cut. The infant was handed off the field. Cord blood was collected. The placenta delivered spontaneously and was grossly normal in appearance. The usual 3 vessel cord was noted. A second degree midline perineal laceration was sustained. This was reapproximated using 3 0 Vicryl in the usual layered fashion. Two figure of eight sutures of the same material were used to reapproximate a right labial laceration. Excellent hemostasis resulted as did excellent reapproximation of the normal anatomy. Needle and instrument counts were correct. The patient was taken to recovery room in stable condition. The infant went to the nursery in stable condition. I was present and scrubbed for the entire delivery. [place] [facility] Date of : 03/13/23 Time of : 13:56 Weeks of gestation at delivery: 37 gender: Female Weight (pounds): 7 Weight (ounces): 11 presentation: vertex position: Right Occiput Anterior Placenta delivery description: Spontaneous and Normal Configuration Cord Vessel Description: 3 Vessels, Nuchal Cord and Delayed Cord Clamping score one minute: 8 score five minutes: 9
--- NOTE | 2023-03-13 14:15 | PM.OBDSVD ---
DS: Admitting Diagnosis Discharge Date 03/15/23 Admitting Diagnosis IUP at 37 5/7 weeks Labor DS: Discharge Diagnosis Discharge Diagnosis (1) (normal spontaneous vaginal delivery): Code(s): O80 - Encounter for full-term uncomplicated delivery Status: Acute OB - DS: Summary OB Procedures : NST and Ultrasound OB Procedures Intrapartum: Spontaneous Vag Delivery OB Procedures: : None Time Spent with Patient Time attestation: Total time spent providing and/or coordinating discharge services: DS: Data Data Completed and Pending Labs on day of discharge: Labs from last 24 hours 03/12/23 19:21 WBC 10.4 H RBC 4.25 Hgb 13.0 Hct 39.1 MCV 92.0 MCH 30.6 MCHC 33.2 RDW 13.8 Plt Count 191 MPV 12.1 H Immature Gran % (Auto) 0.4 Neut % (Auto) 74.5 H Lymph % (Auto) 18.7 Glynn % (Auto) 6.4 Eos % (Auto) 0.0 Baso % (Auto) 0.0 L Lymph # (Auto) 1.94 Glynn # (Auto) 0.7 H Eos # (Auto) 0.0 Baso # (Auto) 0.0 Abs Immat Gran (auto) 0.04 H Absolute Neuts (auto) 7.8 H Absolute Nucleated RBC 0.0 Nucleated RBC % 0.0 Platelet Estimate Adequate % Immature Plt Fraction 10.6 Schistocytes None seen RPR Non-reactive Blood Type A Positive Antibody Screen Negative Discharge Plan Discharge Attending physician on discharge: Casey Barcenas Discharging Clinician: Casey Barcenas Patient Disposition: Home, Self-Care Activity: pelvic rest Diet: regular Discharge Instructions: Call or return if temperature above 100.4? F, increased abdominal pain, increased vaginal bleeding or any new problems. Stand Alone Forms: General Discharge Information Follow-up/Referrals: Casey Barcenas MD [Physician] - 6 Weeks Discharge Medications: New ibuprofen 600 mg tablet 600 mg PO Q6H PRN (Reason: cramps) Qty: 30 0RF Continued Complete 30-975 mg-mcg Tablet 1 tablet PO DAILY Date of admission: 03/12/23 17:05 Primary Care Provider: PHYSICIAN,CUSTOMER SERVICE COORDINATOR Admitting Provider: Casey Barcenas Attending physician on admission: Casey Barcenas Condition: Stable
[2023-03-13] MEDS: OXYTOCIN 30 UNITS/NS 500 ML 30 UNITS/500 ML BAG 125 UNITS IV CONT (14:37)
[2023-03-13] MEDS: IBUPROFEN 600 MG TABLET PO ×2 (16:23→22:36)
[2023-03-13] MEDS: WITCH HAZEL 40 PADS 1 PAD TOPICAL (16:23)
[2023-03-13] MEDS: BENZOCAINE 20% AER SPR (*SP) 56 GM CAN 1 SPRAY TOPICAL (16:23)
--- NOTE | 2023-03-13 17:15 | PC.NURSE ---
Patient transferred to post room #277. Support person present. Oriented to unit, room, information board, rooming in, admission packet and security measures. Patient verbalizes understanding.
[2023-03-14 00:50] VITALS: BP 123/73; PULSE 92; RESP 20; TEMP 36.3
[2023-03-14] MEDS: IBUPROFEN 600 MG TABLET PO ×3 (04:08→19:43)
[2023-03-14 05:15] LABS: Hematocrit 34.7 % (37.0-47.0); Hemoglobin 11.5 g/dL (12.0-15.0)
[2023-03-14 07:55] VITALS: BP 124/64; PULSE 74; RESP 14; TEMP 36.6; O2SAT 100
--- NOTE | 2023-03-14 08:45 | PM.OBPNVD ---
OB - PN: Subj Subjective Date/time seen: 03/14/23 08:45 Narrative: Pain OK. OB - PN: Obj Data Labs 03/14/23 04:08 Labs: Laboratory Results - last 24 hr 03/12/23 03/14/23 19:21 04:08 Hgb 11.5 L Hct 34.7 L RPR Non-reactive OB - PN A/P Plan Comments: A: PPD#1, doing well. P: Routine care. Exam Psych: Other: AVSS ABD soft, nontender, fundus firm EXT nontender
--- NOTE | 2023-03-14 09:03 | WPDANLDPN2 ---
Anes-Prog Note L&D Date/Time: 03/14/23 09:03 Neuro status: Neuro function grossly intact. Vital Signs: Last Vital Signs Temp 36.3 C L 03/14/23 00:50 Pulse 92 03/14/23 00:50 Resp 20 03/14/23 00:50 BP 123/73 03/14/23 00:50 Pulse Ox 99 03/13/23 17:45 O2 Del Method Room Air 03/12/23 19:29 Pain score (VAS): 0 I/O: Intake & Output 03/13/23 03/14/23 03/14/23 23:59 07:59 15:59 Intake Total 1000 Output Total 108 Balance 892 Patient feedback: Patient satisfied with anesthetic care.
[2023-03-14] MEDS: MULTIVIT/MIN/PREN/FOL AC/IRON TABLET 1 TAB PO (10:11)
[2023-03-14 12:17] VITALS: BP 132/77; PULSE 82; RESP 16; TEMP 36.6; O2SAT 99
[2023-03-14 19:40] VITALS: BP 124/77; PULSE 66; RESP 18; TEMP 36.3
[2023-03-15] MEDS: IBUPROFEN 600 MG TABLET PO ×2 (03:50→11:00)
[2023-03-15] MEDS: WITCH HAZEL 40 PADS 1 PAD TOPICAL (03:50)
--- NOTE | 2023-03-15 05:45 | PC.NURSE ---
Patient received instruction on viewing the discharge video Mother & Baby Care, The First Two Weeks . Patient was given the opportunity and encouraged to ask questions. Patient verbalized understanding of information shared and has been given the mother/baby guide for home reference.
[2023-03-15] MEDS: MULTIVIT/MIN/PREN/FOL AC/IRON TABLET 1 TAB PO (08:46)
[2023-03-15] MEDS: DOCUSATE SODIUM 100 MG CAPSULE PO (08:46)
[2023-03-15 09:00] VITALS: BP 122/81; PULSE 79; RESP 18; TEMP 36.8; O2SAT 99
--- NOTE | 2023-03-15 09:14 | PM.OBPNVD ---
OB - PN: Subj Subjective Date/time seen: 03/15/23 09:14 Narrative: Pain OK. Would like to go home. OB - PN: Obj Data Labs 03/14/23 04:08 OB - PN A/P Plan Comments: A: PPD#2, doing well. P: Home to f/u 6 weeks. Exam Psych: Other: AVSS ABD soft, nontender, fundus firm EXT nontender
[2023-03-16 10:27] VITALS: BP 134/83; PULSE 88; RESP 18; TEMP 36.9; O2SAT 99
== END 2023-03-15 14:40 | disposition home or self-care (01) | DRG 807 ==
LOC: ANHLDR 03-13 14:31 → ANHOB2 03-13 17:18
PROVIDERS: Admitting Provider Obstetrics & Gynecology; Visit Provider Obstetrics & Gynecology
DX: O70.1 Second degree perineal laceration during delivery (principal); Z37.0 Single live birth; Z3A.37 37 weeks gestation of pregnancy
CPT/HCPCS: 36415; 85014; 85018; 85025; 85055; 86592; 86850; 86900; 86901; A9270; J2405; J2590; J2795; J7120

== ENCOUNTER 2024-06-12 13:34 | Outpatient (CLI) | payer OTHER, SELFPAY ==
--- NOTE | ~2024-06-12 | MMUS_ITS ---
EXAMINATION: MM diagnostic jeny BI w [place], US breast RT limited HISTORY: Right nipple lump for 2 months. TECHNIQUE: Additional 3-D tomosynthesis images of the breasts were performed and synthetic 2-D images were generated. CAD analysis was submitted and interpreted. High resolution Limited right breast ult rasound was performed. COMPARISON: No prior studies for comparison. BREAST PARENCHYMAL COMPOSITION: Not dense: There are scattered areas of fibroglandular density. FINDINGS: MAMMOGRAPHIC FINDINGS: There are no suspicious masses, calcifications or architectural distortion in either breast to sugges t malignancy. ULTRASOUND: Limited right breast ultrasound: There is a dilated subareolar duct. There is hypoechoic soft tissue in the duct extending to the nipple. No evidence for malignancy in the left breast. IMPRESSION: 1. Abnormal hypoechoic soft tissue in the subareolar ducts of the right breast with distally dilated ducts. 2. Recommend further evaluation with ductogram or MRI of the breast with contrast. BI-RADS Category 0: Incomplete: Needs additional imaging evaluation. Reviewed, dictated and finalized at location B. IMPRESSION: 1. Abnormal hypoechoic soft tissue in the subareolar ducts of the right breast with distally dilated ducts. 2. Recommend further evaluation with ductogram or MRI of the breast with contra st. BI-RADS Category 0: Incomplete: Needs additional imaging evaluation.
== END 2024-06-12 13:35 | disposition home or self-care (01) ==
PROVIDERS: Visit Provider Obstetrics & Gynecology
DX: R92.8 Other abnormal and inconclusive findings on diagnostic imaging of breast (principal)
CPT/HCPCS: 76642; 77062; 77066; G0279

== ENCOUNTER 2024-06-30 10:07 | Outpatient (CLI) | payer OTHER, SELFPAY ==
--- NOTE | ~2024-06-30 | MR_ITS ---
MR breast BI wo/w con 06/30/2024 11:38 CDT INDICATION: Possible intraductal mass of the right breast TECHNIQUE: MRI of the breasts perform using standard protocol pre-and post IV contrast with the follo wing sequences: Axial T2 STIR, axial T1, axial vibrant T1 with fat suppression precontrast and multip hasic postcontrast. 20 cc of MultiHance administered intravenously COMPARISON: Diagnostic and ultrasound dated 06/12/2024 FINDINGS: There are no abnormalities on the precontrast sequences. Not dense: There are scattered are as of fibroglandular density. There is mild background parenchymal enhancement. No enhancing lesion s following contrast administration. No areas of enhancement meeting threshold criteria on CAD gail sis. No evidence of signal abnormalities in the axillary or internal mammary node distributions. LEFT BREAST: No signal abnormalities on precontrast sequences. There is mild background parenchymal enhancement. No enhancing lesions following contrast administration. There is mild asymmetric enhan cement of the left nipple, although no discrete mass identified, likely of no clinical significance. No evidence of signal abnormalities in the axillary or internal mammary node distributions.] IMPRESSION: 1: Right breast: No evidence for malignancy. Asymmetric hypoechoic soft tissue seen in the subareola r ducts of the right breast on prior ultrasound are most likely benign and debris. 6 month follow-up Limited right breast ultrasound recommended. BI-RADS CATEGORY 3-PROBABLY BENIGN FINDING 2: Left breast: Negative. No evidence of malignancy. BI-RADS category 1. Recommend annual mammogr aphy follow-up. Reviewed, dictated and finalized at location B. IMPRESSION: 1: Right breast: No evidence for malignancy. Asymmetric hypoechoic soft tissue seen in the subareolar ducts of the right breast on prior ultrasound are most likely benign and debris. 6 month follow-up Limited right breast ultrasound rec ommended. BI-RADS CATEGORY 3-PROBABLY BENIGN FINDING 2: Left breast: Negative. No evidence of malignancy. BI-RADS category 1. Re commend annual mammography follow-up.
== END 2024-06-30 10:08 | disposition home or self-care (01) ==
PROVIDERS: Visit Provider Obstetrics & Gynecology
DX: N63.10 Unspecified lump in the right breast, unspecified quadrant (principal)
CPT/HCPCS: 77049; A9577; C8908

== ENCOUNTER 2024-10-26 10:36 | Emergency (ER) | payer OTHER, SELFPAY ==
[2024-10-26 11:12] VITALS: BP 143/97; PULSE 86; RESP 16; TEMP 36.6; O2SAT 100
--- NOTE | 2024-10-26 11:49 | ED_ITS ---
HPI - URI/Sore Throat General Chief Complaint: Upper Respiratory Infection Stated Complaint: Sinus Infection Symptoms/Ear Pain Time Seen by Provider: 10/26/24 11:49 Source: patient Mode of arrival: ambulatory Limitations: no limitations History of Present Illness HPI Narrative: 34-year-old female presents with complaint of sinus congestion, postnasal drainage, sinus pressure, sinus headaches for the past 5 days. Patient reports right ear pain for 1 day. Reports muffled hearing and ringing to right ear. Afebrile. Taking [id number] Mucinex to treat congestion. All systems reviewed and negative except as noted above. Related Data Home Medications ?Medication ?Instructions ?Recorded ?Confirmed ?Last Taken ?Type No Home Meds 10/26/24 Unknown History Allergies Allergy/AdvReac Type Severity Reaction Status Date / Time No Known Drug Allergies Allergy Unknown Other Verified 10/26/24 11:14 Review of Systems Review of Systems: CONSTITUTIONAL: Denies fever, chills, or sweats. EYES: Denies visual changes, redness, or discharge. ENT: Reports rhinorrhea, congestion, sinus pressure, sinus pain, right ear pain. Denies sore throat CARDIOVASCULAR: Denies chest pain, palpitations, or edema. RESPIRATORY: Denies cough or dyspnea. GASTROINTESTINAL: Denies abdominal pain, nausea, vomiting, or diarrhea. GENITOURINARY: Denies dysuria or hematuria. SKIN: Denies rash or itching. MUSCULOSKELETAL: Denies back pain, joint pain, or myalgia. NEUROLOGIC: Denies headache, numbness, or weakness. PSYCHIATRIC: Denies anxiety or depression. All other systems reviewed are negative, except as documented in HPI. [facility] Past Medical History Medical History Degenerative arthritis of knee, bilateral Surgical History Surgical History H/O hand surgery 2011 History of cholecystectomy 2014 Family History Family History Mother Hypertension Father Family history of diabetes mellitus in first degree relative Social History Social History Smoking status: Never smoker Second hand tobacco smoke exposure: No Alcohol intake: current Substance use: never Lack of Transportation: No Lack of Food: Never True Current Housing: I Have Housing Concerned About Future Housing: No Difficulty Paying Gas/Electric Bills: No Difficulty Paying for Meds: No Currently Unemployed: No Education: Bachelor's Degree Difficulty w/ Childcare or Family Care: No Living arrangements: with family Occupation/Education: occupation Additional occupation/education comments: [employer] Gender identity (if verbalized by the patient): Female Sexual Orientation (if Verbalized by the Patient): Straight or Heterosexual Spiritual care concerns: No Agree to blood products: Yes Comments At time of signature, agree with nursing past medical, surgical, social and family history. There is no relevant family history pertinent to the presenting complaint. Exam Narrative: GENERAL: This is a well-nourished, well-developed patient, in no apparent distress. HEAD: normocephalic, atraumatic. EYES: PERRL. Sclera clear/white. Vision is grossly intact. EARS: External ears normal, auditory canals clear and without drainage, erythema and bulging to right TM. Left TM is normal. No perforation bilaterally. Hearing grossly intact. NOSE: External nose normal with moderate congestion, purulent nasal drainage, erythema and swelling to bilateral nares THROAT: Mucous membranes moist, erythema postnasal drainage. No swelling or exudates. NECK: Neck supple, non-tender without lymphadenopathy, masses or thyromegaly. CARDIOVASCULAR: Regular rate and rhythm without murmurs, gallops, or rubs. RESPIRATORY: Clear to auscultation. Breath sounds equal bilaterally. No wheezes, rales, or rhonchi. SKIN: warm, Dry, intact with no suspicious lesions or rash, good texture and turgor. NEURO: awake, alert, and oriented to person, place and time. There were no obvious focal neurologic abnormalities. EXTREMITIES: No joint tenderness, effusion, or edema noted. Course Course Level of Care: Express Care Visit Vital Signs Vital signs: Vital Signs Temperature 36.6 C 10/26/24 11:12 Pulse Rate 86 10/26/24 11:12 Respiratory Rate 16 10/26/24 11:12 Blood Pressure 143/97 H 10/26/24 11:12 Pulse Oximetry 100 10/26/24 11:12 Oxygen Delivery Room Air 10/26/24 11:12 Temperature 36.6 C 10/26/24 11:12 Pulse Rate 86 10/26/24 11:12 Respiratory Rate 16 10/26/24 11:12 Blood Pressure 143/97 H 10/26/24 11:12 Pulse Oximetry 100 10/26/24 11:12 Oxygen Delivery Room Air 10/26/24 11:12 Reviewed MDM - URI/Sore Throat MDM Narrative Medical decision making narrative: Patient is aware of diagnosis, understands and agrees to treatment plan. Anticipatory guidance given. Patient agrees to follow-up as directed and is aware of reasons to seek care at the emergency department. Portions of this record may have been created with voice recognition software Differential Diagnosis Differential diagnosis: Likely upper respiratory infection, otitis media, sinusitis and viral infection Discharge Plan Discharge Clinical Impression: Acute right otitis media Sinusitis Qualifiers: Sinusitis location: maxillary Chronicity: acute Patient Disposition: Home, Self-Care Condition: Stable Instructions: Antibiotic Form, Ear Infection (ED) Additional Instructions: Take antibiotic as prescribed until gone. Taking [id number] antihistamine daily such as Claritin or Zyrtec. Take Tylenol or ibuprofen every 6-8 hours as needed for pain and fever. Drink at least 64 oz of water a day. Follow-up with your primary care physician if symptoms are not improving. Patient Language: Tamazight Prescriptions: New amoxicillin 875 mg tablet 875 mg PO Q12H 10 Days Qty: 20 0RF fluticasone propionate [Children's Flonase Allergy Rlf] 50 mcg/actuation spray,suspension 1 spray intranasal BID Qty: 16 0RF Rx Instructions: administer into each nostril No Action No Home Meds ibuprofen 600 mg tablet 600 mg PO Q6H PRN (Reason: cramps) Qty: 30 0RF Follow-up/Referrals: PHYSICIAN,HARM REDUCTION WORKER [Primary Care Provider] - Time of Disposition: 11:54
== END 2024-10-26 11:58 | disposition home or self-care (01) ==
PROVIDERS: Emergency Provider Nurse Practitioner Family
DX: H66.91 Otitis media, unspecified, right ear (principal); J01.00 Acute maxillary sinusitis, unspecified; M17.0 Bilateral primary osteoarthritis of knee
CPT/HCPCS: 99213; G0463

== ENCOUNTER 2024-12-16 10:17 | Outpatient (CLI) | payer OTHER, SELFPAY ==
--- NOTE | ~2024-12-16 | MMUS_ITS ---
EXAMINATION: MM diagnostic jeny RT w [place], US breast RT limited HISTORY: Follow-up right breast abnormality TECHNIQUE: Additional 3-D tomosynthesis images of the right breast were performed and synthetic 2-D i mages were generated. CAD analysis was submitted and interpreted. High resolution Limited right breas t ultrasound was performed. COMPARISON: 06/12/2024 BREAST PARENCHYMAL COMPOSITION: Not dense: There are scattered areas of fibroglandular density. FINDINGS: MAMMOGRAPHIC FINDINGS: There are no suspicious masses, calcifications or architectural distortion in the right breast to sug gest malignancy. ULTRASOUND: Limited right breast ultrasound: The nipple appears abnormal and somewhat heterogeneous with a signif icantly dilated duct extending to the nipple. IMPRESSION: 1. Abnormal appearance to right nipple with dilated contiguous duct measuring up to 5 mm. 2. Recommend surgical biopsy of palpable mass at the nipple. Due to the superficial location of the m ass this is not amenable to ultrasound-guided biopsy. BI-RADS category 4, suspicious findings. Reviewed, dictated and finalized at location B. X RAY CONSULTANT IMPRESSION: 1. Abnormal appearance to right nipple with dilated contiguous duct measuring u p to 5 mm. 2. Recommend surgical biopsy of palpable mass at the nipple. Due to the superfi cial location of the mass this is not amenable to ultrasound-guided biopsy. BI-RADS category 4, suspicious findings.
--- OUTSIDE RECORDS SUMMARY | 2024-12-16 11:21 | XMS_ITS | Clinical Summary ---
Author Organization [facility] Address [address] [place] [id number] Care Team Providers Care Strategic Planner Name Role Phone None, Provider MD Primary Care Provider Unavaila ble Allergies No known active allergies Medications No known medications Active Problems No known active problems Encounters Date Type Department Care Team Description 09/16/2024 9:00 AM SECURITY LEAD - 09/16/2024 10:04 AM SECURITY LEAD Hospital Encounter [facility] [place] [address] Rhea Morales DO Cough; Flu Like Symptoms Discharge Disposition: Home or Self Care (Routine Discharge) 09/16/2024 Travel from Last 3 Months Family History Medical History Relation Comments Diabetes Father Alzheimer's disease Maternal Grandfather Colon Cancer Maternal Grandfather Stroke Maternal Grandfather Breast Cancer Maternal Grandmother Hypertension Maternal Grandmother Hypertension Mother Kidney Disease Mother Epilepsy Nephew Seizures Nephew Stroke Paternal Grandfather Relation Status Comments Father Alive Maternal Grandfather Maternal Grandmother Mother Alive Nephew Other Paternal Grandfather Social History Tobacco Use Types Packs/Day Years Used Date Smoking Tobacco: Never Passive Smoke Exposure: Never Smokeless Tobacco: Never Tobacco Cessation:Counseling Given: Not Answered Alcohol Use Standard Drinks/Week Comments Yes 0 (1 standard drink = 0.6 oz pur e alcohol) socially AUDIT-C Answer Date Recorded Q1: How often do you have a drink containing alc ohol? Never 01/17/2021 Average Number of Drinks Not on file 021 Frequency of Binge Drinking Not on file 07/2021 PHQ-2 Answer Date Recorded Patient Health Questionnaire-2 Score 0 05/24/2023 Comments No Sex and Gender Information Value Date Recorded Sex Assigned at Not on file Legal Sex Female 7:11 AM SECURITY LEAD Gender Identity Not on file Sexual Orientation Not on file Last Filed Vital Signs Vital Sign Reading Time Taken Comments Blood Pressure 127/71 09/16/2024 9:03 AM SECURITY LEAD Pulse 104 09/16/2024 9:03 AM SECURITY LEAD Temperature 37.1 ??C (98.7 ??F) 09/16/2024 9:03 AM CS T Respiratory Rate 20 09/16/2024 9:03 AM SECURITY LEAD Oxygen Saturation 96% 09/16/2024 9:03 AM SECURITY LEAD Inhaled Oxygen Concentration - - Weight 133.8 kg (295 lb) 09/16/2024 9:03 AM SECURITY LEAD Height 172.7 cm (5' 8 ) 09/16/2024 9:03 AM SECURITY LEAD Body Mass Index 44.85 09/16/2024 9:03 AM SECURITY LEAD Plan of Treatment Health Maintenance Due Date Last Done Comments Cervical Cancer Screening Pa p Smear (Age 30 to 64) Every 3 Years 1990 Annual Physical 1993 Hepatitis C 2008 DTaP, Tdap and Td Vaccines ( 1 - Tdap) 2009 Hepatitis B Vaccines (1 of 3 - 19+ 3-dose series) 2009 Cervical Cancer Screening Pa p with HPV Testing (Age 30 to 64) Every 5 Years 2020 Cervical Cancer Screening with HPV 2020 PHQ-2 (Physician Mentasta) 05/24/2024 05/24/2023 COVID-19 Vaccine (1 - 2023-2 5 season) 2024 Influenza Adult (#1) 2024 PHQ-2 (Physician Mentasta) 11/11/2024 05/24/2023 HPV Vaccines Aged Out No longer eligi ble based on patient's age to complete this topic Meningococcal B Vaccine Aged Out No l onger eligible based on patient's age to complete this topic Meningococcal Vaccine Aged Out No michelle genesis eligible based on patient's age to complete this topic Pneumococcal Vaccine: Pediat rics (0 to 5 Years) and At-Risk Patients (6 to 64 Years) Aged Out No longer eligi ble based on patient's age to complete this topic RSV Immunizations Under 20 Months Aged Out No longer eligible based on patient's age to complete this topic Procedures Procedure Name Priority Date/Time Associated Diagnosis Comments XR CHEST PA+LAT STAT 09/16/2024 9:37 AM SECURITY LEAD from Last 3 Months Results * XR CHEST PA+LAT (09/16/2024 9:37 AM SECURITY LEAD) Anatomical Region Laterality Modality Chest Radiographic Liane ging 09/16/2024 9:54 AM SECURITY LEAD Impressions 09/16/2024 9:56 AM SECURITY LEAD =====IMPRESSION:===== Right lower lobe pneumonia suspected. PA lateral radiographic follow-up to resolution recommended following appropriate treatment interval. Ordered By: RHEA MORALES Interpreted By: Sean Hallman MD, 09/16/2024 9:54 AM Narrative 09/16/2024 9:56 AM SECURITY LEAD [place] [id number] Examination: Chest x-ray 2 view Exam date/time: 09/16/2024 9:28 AM Reason For Exam: ??34 female with cough, fever, crackles R base ? Comparison: None Technique: Frontal and lateral view. Findings: Normal cardiac size. Normal position of the trachea. Hilar and mediastinal contours are within normal limits. Normal pulmonary vascularity. There is airspace opacity in the right lower lobe on the lateral view suggestive of pneumonia in the appropriate clinical setting. Less prominent on the frontal view. Remaining lungs and pleural spaces are grossly clear;. No sizable effusion or pneumothorax seen. Upper abdomen is unremarkable. Procedure Note Sean Hallman MD - 09/16/[address] [address] Examination: Chest x-ray 2 view Exam date/time: 09/16/2024 9:28 AM Reason For Exam: 34 female with cough, fever, crackles R base Comparison: None Technique: Frontal and lateral view. Findings: Normal cardiac size. Normal position of the trachea. Hilar andmediastinal contours are within normal limits. Normal pulmonaryvascularity. There is airspace opacity in the right lower lobe on the lateral viewsuggestive of pneumonia in the appropriate clinical setting. Lessprominent on the frontal view. Remaining lungs and pleural spaces are grossly clear;. No sizable effusionor pneumothorax seen. Upper abdomen is unremarkable. =====IMPRESSION:===== Right lower lobe pneumonia suspected. PA lateral radiographic follow-up toresolution recommended following appropriate treatment interval. Ordered By: RHEA MORALES Interpreted By: Sean Hallman MD, 09/16/2024 9:54 AM us Rhea Morales DO GENERAL IMAGING Final Result from Last 3 Months Insurance [employer] Care Teams Strategic Planner Relationship Specialty Start Date End Date None, Provider, MD PCP - General UNKNOWN PHYSICIAN SPECIALTY 09/16/24
--- OUTSIDE RECORDS SUMMARY | 2024-12-16 11:21 | XMS_ITS | Clinical Summary ---
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[employer] Gender Identity Not on file Sexual Orientation Not on file Plan of Treatment Health Maintenance Due Date Last Done Comments Hepatitis C Virus (HCV) Screening 1990 TdaP Immunization 1990 Hepatitis B Immunization (1 of 3 - 19+ 3-dose series) 2009 Pap Smear 2011 Cervical Cancer Screening (CCS) 2020 HPV/Cotest 2020 Influenza Immunization (#1) 2024 SARS-COV-2 Immunization ( season) 2024 Respiratory Syncytial Virus (RSV) Immunization (Adult) (1 - 1-dose 75+ series) 2065 Meningococcal Immunization (ACWY) Aged Out No longer eligible based on patient's age to complete this topic Pneumococcal Immunization Combined Aged Out No longer eligible based on patient's age to complete this topic Rotavirus Immunization Aged Out No lo nger eligible based on patient's age to complete this topic
== END 2024-12-16 10:18 | disposition home or self-care (01) ==
PROVIDERS: Visit Provider Obstetrics & Gynecology
DX: R92.8 Other abnormal and inconclusive findings on diagnostic imaging of breast (principal)
CPT/HCPCS: 76642; 77061; 77065; G0279

== ENCOUNTER 2025-02-16 00:06 | Day surgery (SDC) | payer OTHER, SELFPAY ==
[2025-02-08 11:22] VITALS: BMI 43.4
--- NOTE | 2025-02-08 11:23 | PC.NURSE ---
Report to the Outpatient Waiting Room, entrance under the green pavilion located off [facility], at time _0600_ on date _[id number]_. Planned Procedure Time: _0730_.? Time changes happen often and if your time is changed the preop area will call you the afternoon before. - You and your visitor will be asked to self-screen and do not enter if you have any COVID symptoms. Please call surgeon if you need to reschedule. - A mask is optional within the hospital at this time. Patients may have clear liquids (water, carbonated beverages, clear teas, apple juice) until 3 hours prior to surgery with a maximum of 20 ounces. - No food from midnight until time of surgery and no smoking, or chewing tobacco (or any form of nicotine). No chewing gum, candy or mints. Take only the following medications with a SIP of water on the morning of surgery: ___None DO NOT STOP ANY OF YOUR OTHER PRESCRIPTION MEDICATIONS PRIOR TO SURGERY EXCEPT THE FOLLOWING Hold all vitamins and supplements for 3 days per anesthesiologist. Medications to discontinue per physician Date to take last dose Please no make-up, nail malay, hairspray, perfume, deodorant, or body powder the day of surgery.? No jewelry (including any body piercings) or valuables the day of surgery, leave them at home.? Please take a shower or bath the night before, or the morning of, surgery with an antibacterial soap.? Wear comfortable, loose fitting clothing.? - Jewelry must be removed prior to entering the operating room.? Rings and piercings that are not removed may be cut off. - The hospital will not accept responsibility for valuables.? - Please leave all valuables, including medications, at home the day of surgery. If you are going home after surgery, a licensed mobile lounge driver or operator must drive you home.? - NO public transportation without another adult if you receive anesthesia. - We recommend that an adult stay with you for 24 hours following discharge. - We also recommend that you do not drive, make important decision, drink alcoholic beverages, or take any drugs that were not prescribed by your health care provider for at least 24 hours after your discharge time. Follow any additional instructions given to you from your surgeon. Telephone instructions given to __Gabriela__and asked if any additional questions and then verbalized understanding. Patient advised to call surgeon office or pre surgery nurse liaison [phone] if any additional questions.
[2025-02-16] VITALS (7 sets, daily range): BP systolic 99–126; BP diastolic 51–90; PULSE 56–79; RESP 12–16; TEMP 36.2–36.4; O2SAT 96–99; BMI 44.0
--- OUTSIDE RECORDS SUMMARY | 2025-02-16 00:08 | XMS_ITS | Clinical Summary ---
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 Gender Identity Not on file Sexual Orientation Not on file Last Filed Vital Signs Vital Sign Reading Time Taken Comments Blood Pressure 127/71 09/16/2024 9:03 AM OPTICAL MODEL MAKER AND TESTER Pulse 104 09/16/2024 9:03 AM OPTICAL MODEL MAKER AND TESTER Temperature 37.1 C (98.7 F) 09/16/2024 9:03 AM OPTICAL MODEL MAKER AND TESTER Respiratory Rate 20 09/16/2024 9:03 AM OPTICAL MODEL MAKER AND TESTER Oxygen Saturation 96% 09/16/2024 9:03 AM OPTICAL MODEL MAKER AND TESTER Inhaled Oxygen Concentration - - Weight 133.8 kg (295 lb) 09/16/2024 9:03 AM OPTICAL MODEL MAKER AND TESTER Height 172.7 cm (5' 8 ) 09/16/2024 9:03 AM OPTICAL MODEL MAKER AND TESTER Body Mass Index 44.85 09/16/2024 9:03 AM OPTICAL MODEL MAKER AND TESTER Plan of Treatment Health Maintenance Due Date [...] 2020 Cervical Cancer Screening with HPV 2020 COVID-19 Vaccine (2023-2 5 season) 2024 PHQ-2 (Physician [place]) 11/11/2024 05/24/2023 HPV Vaccines Aged Out No [...] on patient's age to complete this topic Insurance [employer] Care Teams Brief Writer Relationship Specialty Start Date End Date None, Provider, MD PCP - General UNKNOWN PHYSICIAN SPECIALTY 09/16/24
--- OUTSIDE RECORDS SUMMARY | 2025-02-16 00:08 | XMS_ITS | Clinical Summary ---
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
--- NOTE | 2025-02-16 06:57 | WPDHPUPDATE1 ---
History and Physical Update Update Date/Time: 02/16/25 06:57 - Right nipple biopsy with excisional biopsy right mammary duct, possible total duct excision and possible adjacent tissue transfer. History and Physical has been reviewed, including an updated exam of the patient. There are NO changes in the patient's condition. Risks, benefits, and alternatives have been discussed and questions answered. Patient agrees to proceed with procedure.
[2025-02-16] MEDS: LACTATED RINGERS 1,000 ML 30 ML IV CONT (07:05)
[2025-02-16] MEDS: ACETAMINOPHEN 500 MG TABLET 1000 MG PO (07:10)
--- NOTE | 2025-02-16 07:18 | P.PNAN_ITS ---
Anes - Initial Pre Proc Eval Procedure: Operation Date: 02/16/25 07:30 Proposed Procedures p Right Nipple Biopsy, Excisional Biopsy Right Mammary Duct with Possible Total Duct Excision, Possible Adjacent Tissue Transfer - Deborah Holden MD Date/Time: 02/16/25 07:18 Surgeon: Deborah Holden MD Pre Op Diagnosis: right breast mass Patient Data Age: 34 Gender: F Height: 1.73 m Weight: 129.5 kg Allergies Allergy/AdvReac Type Severity Reaction Status Date / Time No Known Drug Allergies Allergy Unknown Other Verified 02/09/25 08:26 Home Medications ?Medication ?Instructions ?Recorded ?Confirmed ?Type cetirizine 10 mg tablet (All Day 10 mg PO DAILY PRN allergy symptoms 02/08/25 02/08/25 History Allergy (cetirizine)) Patient hx anesthesia problems: none Family hx anesthesia problems: none Results Review: All pre-operative results and documents have been reviewed as part of the pre- operative evaluation. [facility] Past Medical History Medical History Degenerative arthritis of knee, bilateral Surgical History Surgical History H/O hand surgery 2011 History of cholecystectomy 2014 Family History Family History Mother Hypertension Father Family history of diabetes mellitus in first degree relative Social History Social History Smoking status: Never smoker Second hand tobacco smoke exposure: No Alcohol intake: current Substance use: never Substance use type: does not use Do You Feel Safe in your Home?: Yes Lack of Transportation: No Lack of Food: Never True Current Housing: I Have Housing Concerned About Future Housing: No Difficulty Paying Gas/Electric Bills: No Difficulty Paying for Meds: No Currently Unemployed: No Education: Bachelor's Degree Difficulty w/ Childcare or Family Care: No Living arrangements: with family Occupation/Education: occupation Additional occupation/education comments: [employer] Gender identity (if verbalized by the patient): Female Sexual Orientation (if Verbalized by the Patient): Straight or Heterosexual Spiritual care concerns: No Agree to blood products: Yes Anes - Eval Final PreProcedure Day of Procedure 02/16/25 07:18 Patient weight: overweight Heart: regular rate and rhythm Lungs: clear to auscultation Airway: Mallampati scale class II Neurological: alert and oriented Last oral intake: >/= 8 hours ASA classification: II Emergent: no Anesthetic plan: proceed Anesthesia type and monitoring: general LMA and standard monitoring Results Review: All pre-operative results and documents have been reviewed as part of the pre- operative evaluation. Informed Consent: The patient's anesthetic plan and its attendant risks and benefits were discusse d with the patient/family/POA. Questions were solicited and answers provided to the satisfaction of the patient/family/POA.
[2025-02-16] MEDS: SCOPOLAMINE 1 MG PATCH 1 PATCH TRANSDERM (07:20)
[2025-02-16] MEDS: ceFAZolin 3 GM/D5W 100 ML 100 ML IVPB (07:32)
[2025-02-16] MEDS: BUPIVACAINE/EPINEPHRINE 0.5% 30 ML VIAL 20 ML INFILTRATE (07:53)
[2025-02-16] MEDS: LIDOCAINE 1% LOCAL INJ 10 ML VIAL 20 ML INFILTRATE (07:54)
[2025-02-16] MEDS: NEOMYCIN/POLYMYXIN/BACITRACIN OINTMENT 15 GM TUBE 1 APPLIC TOPICAL (08:22)
--- NOTE | 2025-02-16 08:26 | W.PM.PROC2 ---
Procedure Note - Detailed Date of Procedure 02/16/25 Pre-op Diagnosis Right nipple and subareolar mass Post-op Diagnosis Same Procedure Performed Excisional biopsy of right nipple and subareolar lesion Surgeon Deborah Holden MD Anesthesia MAC Description of Procedure Patient was identified in the preoperative holding area brought to the operating room suite. She was laid supine in the OR table sequential compression devices were applied. Anesthesia was induced without difficulty. The right chest area was prepped and draped in a sterile fashion. A small superior periareolar incision was made and dissection was carried down through the subcutaneous tissue towards the middle the nipple. A small incision was made overlying the lesion of the nipple with immediate drainage of thick yellow fluid resembling milk, with no foul odor. A small lacrimal probe was introduced through the incision and I was able to identify a dilated duct through my incision in the subareolar area that was connected to this nipple cyst. This duct was dissected and excised EN bloc along with the cyst and sent to pathology as permanent specimen. The cavity was irrigated with saline hemostasis was assured. The nipple skin was approximated with a 5 0 fast-absorbing gut suture in interrupted fashion. The area of the cyst in the subareolar plane was approximated with interrupted 2 0 Vicryl intraparenchymal sutures. The deep dermal layer was then closed with interrupted 3-0 Vicryl followed by 4-0 Monocryl at subcuticular fashion for the skin. Dermabond was applied followed by a sterile dressing and a surgical bra. Patient was awoken from anesthesia taken to the recovery area in stable condition. All needles, instruments, and sponge counts were correct as reported by the operating room staff. Patient tolerated the procedure well with no immediate complications. Estimated Blood Loss 3 Pathology Yes Complications No immediate complications Condition Stable Disposition PACU [facility] Billing Surgery - Charge Forward: Surgery Billing (CPT 75713)
== END 2025-02-16 10:05 | disposition home or self-care (01) ==
PROVIDERS: Visit Provider Surgery
PROC: (CPT 19120; principal; 2025-02-16 07:30)
DX: N60.01 Solitary cyst of right breast (principal); N60.11 Diffuse cystic mastopathy of right breast; M17.0 Bilateral primary osteoarthritis of knee; Z98.890 Other specified postprocedural states; Z90.49 Acquired absence of other specified parts of digestive tract
CPT/HCPCS: 19120; 88305; 88342; A9270; J0690; J1100; J1171; J2003; J2250; J2405; J2704; J3010; J7120; Q9968

== ENCOUNTER 2025-06-18 10:35 | Outpatient (CLI) | payer OTHER, SELFPAY ==
--- NOTE | ~2025-06-18 | MMUS_ITS ---
EXAMINATION: MM diagnostic jeny BI w d[place], US breast RT limited INDICATION: 35-year old female; presents for follow-up of right subareolar abnormal appearance seen o n mammogram completed on 12/16/2024. Apparently she had surgical removal of right duct/cyst in the inte rval. Patient is asymptomatic today. COMPARISON: 12/16/2024 and 06/12/2024 TECHNIQUE: Digital breast tomosynthesis True lateral and spot compression CC and MLO views of the LUANN ATERAL breast were obtained with computer-aided detection to assist in interpretation of the study. FINDINGS: There are scattered areas of fibroglandular density. There are no suspicious masses, calcifications, architectural distortion or any other abnormality in either breast. RIGHT BREAST ULTRASOUND FINDINGS: Targeted evaluation of the subareolar region was completed. There is no suspicious sonographic abnorm ality seen. The previously reported dilated duct in subareolar location is no longer present. IMPRESSION: No mammographic evidence of malignancy in either breast. Interval resolution of previously reported right subareolar finding. May have been removed surgically in the interval. RECOMMENDATION: Clinical follow-up as warranted. Screening mammogram at age 40. BI-RADS 2, BENIGN Reviewed, dictated and finalized at location B. IMPRESSION: No mammographic evidence of malignancy in either breast. Interval resolution of previously reported right subareolar finding. May have b een removed surgically in the interval. RECOMMENDATION: Clinical follow-up as warranted. Screening mammogram at age 40. BI-RADS 2, BENIGN
--- OUTSIDE RECORDS SUMMARY | 2025-06-18 10:43 | XMS_ITS | Clinical Summary ---
Author Organization [facility] Address [address] [place] [id number] Care Team Providers Care Classroom Technology Technician Name Role Phone None, Provider MD Primary [...] on file Legal Sex Female 7:11 AM PERSONNEL ASSISTANT Gender Identity Not on file Sexual Orientation Not on file Last Filed Vital Signs Vital Sign Reading Time Taken Comments Blood Pressure 127/71 09/16/2024 9:03 AM PERSONNEL ASSISTANT Pulse 104 09/16/2024 9:03 AM PERSONNEL ASSISTANT Temperature 37.1 C (98.7 F) 09/16/2024 9:03 AM PERSONNEL ASSISTANT Respiratory Rate 20 09/16/2024 9:03 AM PERSONNEL ASSISTANT Oxygen Saturation 96% 09/16/2024 9:03 AM PERSONNEL ASSISTANT Inhaled Oxygen Concentration - - Weight 133.8 kg (295 lb) 09/16/2024 9:03 AM PERSONNEL ASSISTANT Height 172.7 cm (5' 8) 09/16/2024 9:03 AM PERSONNEL ASSISTANT Body Mass Index 44.85 09/16/2024 9:03 AM PERSONNEL ASSISTANT Plan of Treatment Health Maintenance Due Date Last Done Comments Cervical Cancer Screening Pa p Smear (Age 30 to 64) Every 3 Years 1990 Annual Physical 1993 Hepatitis C 2008 DTaP, Tdap and Td Vaccines ( 1 - Tdap) 2009 Hepatitis B Vaccines (1 of 3 - 19+ 3-dose series) 2009 HPV Vaccines (1 - 3-dose SCD M series) 2017 Cervical Cancer Screening Pa p with HPV Testing (Age 30 to 64) Every 5 Years 2020 Cervical Cancer Screening with HPV 2020 COVID-19 Vaccine (2023-2 5 season) 2024 Meningococcal B Vaccine Aged Out No l onger eligible based on patient's age to complete this topic Meningococcal Vaccine Aged Out No michelle genesis eligible based on patient's age to complete this topic Pneumococcal Vaccine: Pediat rics (0 to 5 Years) and At-Risk Patients (6 to 49 Years) Aged Out No longer eligible b ased on patient's age to complete this topic RSV Immunizations Under 20 Months Aged Out No longer eligible based on patient's age to complete this topic Insurance [address] [place] [address] [employer] Care Teams Classroom Technology Technician Relationship Specialty Start Date End Date None, Provider, MD PCP - General UNKNOWN PHYSICIAN SPECIALTY 09/16/24
--- OUTSIDE RECORDS SUMMARY | 2025-06-18 10:43 | XMS_ITS | Clinical Summary ---
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
== END 2025-06-18 10:36 | disposition home or self-care (01) ==
LOC: ANHIMG 10:42
PROVIDERS: Visit Provider Surgery
DX: N64.9 Disorder of breast, unspecified (principal); N63.10 Unspecified lump in the right breast, unspecified quadrant; N60.01 Solitary cyst of right breast; R92.8 Other abnormal and inconclusive findings on diagnostic imaging of breast
CPT/HCPCS: 76642; 77062; 77066; G0279

== ENCOUNTER 2025-08-18 13:58 | Emergency (ER) | payer OTHER, SELFPAY ==
--- NOTE | ~2025-08-18 | XR_ITS ---
EXAMINATION: XR knee LT 3V, 08/18/2025 15:30 CDT HISTORY: knee pain, no injury COMPARISON: No comparisons available. Findings: No acute fracture or malalignment. No significant degenerative changes. Soft tissues unremarkable. Impression: No acute fracture or malalignment. Reviewed, dictated and finalized at location P. Impression: No acute fracture or malalignment.
--- NOTE | ~2025-08-18 | CT_ITS ---
EXAMINATION: CT brain wo con COMPARISON: None HISTORY: headache TECHNIQUE: Axial images were obtained through the brain without IV contrast. CT scan performed using dose optimization techniques including the following automated exposure control; adjustment of mA and/or kV; use of iterative reconstruction technique. Automatic exposure control was used to reduce radiation dose. Permanent radiation dose record is archived to PACS. FINDINGS: No acute infarct or parenchymal hemorrhage. No abnormal mass or mass effect. No midline shift. No extra-axial fluid collections. No hydrocephalus. . Mastoid air cells unremarkable. Sinuses and orbits unremarkable. No acute fracture. No significant facial or scalp soft tissue swelling evident. No radiopaque foreign body is seen. Impression: 1.No acute intracranial abnormality. Reviewed, dictated and finalized at location P. Impression: 1.No acute intracranial abnormality.
--- NOTE | ~2025-08-18 | XR_ITS ---
EXAMINATION: XR knee RT 3V, 08/18/2025 15:30 CDT HISTORY: knee pain, no injury COMPARISON: No comparisons available. Findings: No acute fracture or malalignment. Moderate degenerative changes patellofemoral joint with small effusion Soft tissues unremarkable. Impression: No acute fracture or malalignment. Reviewed, dictated and finalized at location P. Impression: No acute fracture or malalignment.
[2025-08-18 14:00] VITALS: BP 127/87; PULSE 84; RESP 20; TEMP 36.1; O2SAT 100
--- NOTE | 2025-08-18 15:32 | ED_ITS ---
HPI - General Adult General Chief complaint: Extremity Problem,Nontraumatic Stated complaint: knees and hands swollen Time Seen by Provider: 08/18/25 14:41 History of Present Illness HPI narrative: Gabriela Mancia is a 35-year-old female with no past medical history says she is not on any medications daily who presents with basically wanting another opinion. She states that she was in her normal state of health until Saturday she started to have a headache, fever, felt like her face was getting swollen she that maybe was a migraine she was feeling worse so she went to the emergency department Saturday they did some labs found out she had a urinary tract infection they started her on Keflex and sent her home. she woke up on Saturday and continued to feel much worse with pain in her joints to her wrist and her knees she states that her joints and her knees are swollen, she went back to the ER on Saturday from there they did a Lyme test and more lab work, the didnt find anything new, they started her on doxycycline empirically and prednisone. So she is still taking the Keflex, doxycycline and the prednisone and she feels like she is having poor mobility ability, she says that her is having to lift her to go to the bathroom because of the extreme pain in her knees when she tries to bear weight and change positions. now she is also having some pain on the top of her right foot and both wrists. She says that she has been taking Tylenol ibuprofen around the clock since this and she says that she still has a little bit of a headache about a 3/10 but is not that severe at this time. She denies any nausea, denies vomiting denies abdominal pain denies chest pain denies shortness of breath denies cough denies any recent URI symptoms denies any illnesses recently weeks before this. Denies any vision changes. Related Data Home Medications ?Medication ?Instructions ?Recorded ?Confirmed ?Last Taken ?Type cetirizine 10 mg tablet (All Day 10 mg PO DAILY PRN al lergy symptoms 02/08/25 02/08/25 Unknown History Allergy (cetirizine)) Allergies Allergy/AdvReac Type Severity Reaction Status Date / Time No Known Drug Allergies Allergy Unknown Other Verified 08/18/25 13:59 Review of Systems 2 Review of Systems: All systems reviewed & are unremarkable except as noted in HPI and below PMFSH Past Medical History Medical History Degenerative arthritis of knee, bilateral Surgical History Surgical History H/O hand surgery 2011 History of cholecystectomy 2014 Family History Family History Mother Hypertension Father Family history of diabetes mellitus in first degree relative Social History Social History Smoking status: Never smoker Second hand tobacco smoke exposure: No Alcohol intake: current Substance use: never Substance use type: does not use Do You Feel Safe in your Home?: Yes Lack of Transportation: No Lack of Food: Never True Current Housing: I Have Housing Concerned About Future Housing: No Difficulty Paying Gas/Electric Bills: No Difficulty Paying for Meds: No Currently Unemployed: No Education: Bachelor's Degree Difficulty w/ Childcare or Family Care: No Living arrangements: with family Occupation/Education: occupation Additional occupation/education comments: [employer] Gender identity (if verbalized by the patient): Female Sexual Orientation (if Verbalized by the Patient): Straight or Heterosexual Spiritual care concerns: No Agree to blood products: Yes Exam 2 Narrative: GENERAL: Well-appearing, well-nourished, and in no acute distress. HEAD: Normocephalic, atraumatic. EYES: PERRLA and EOMI. ENT: Nares clear, no rhinorrhea or epistaxis. Mucous membranes moist. Oropharynx without tonsillar hypertrophy exudate or other lesions. NECK: Supple. No adenopathy or masses. No carotid bruits or JVD CHEST: Clear to auscultation. No respiratory distress. No wheezes rales or rhonchi HEART: Regular rate and rhythm. No murmur heard. Normal peripheral pulses. ABDOMEN: Soft, nontender, nondistended, normal active bowel sounds. EXTREMITIES: Normal range of motion. No edema. SKIN: Warm, dry, no rash. NEURO: No focal deficits. Alert and oriented x3. PSYCH: Normal mood and affect. Course Vital Signs Vital signs: Vital Signs Temperature 36.1 C L 08/18/25 14:00 Pulse Rate 84 08/18/25 14:00 Respiratory Rate 20 08/18/25 14:00 Blood Pressure 127/87 08/18/25 14:00 Pulse Oximetry 100 08/18/25 14:00 Oxygen Delivery Room Air 08/18/25 14:00 Temperature 36.1 C L 08/18/25 14:00 Pulse Rate 83 08/18/25 18:07 Respiratory Rate 18 08/18/25 18:07 Blood Pressure 131/89 08/18/25 18:07 Pulse Oximetry 97 08/18/25 18:07 Oxygen Delivery Room Air 08/18/25 14:00 Medical Decision Making MDM Narrative Medical decision making narrative: 35-year-old with no past medical history with complicated vague presentation history as documented in HPI Concern for: Polymyositis, neuromuscular disorder, medication adverse reaction, sepsis, viral syndrome, checking labs/ head ct / xr of bilateral knees CBC-no leukocytosis, hemodynamically stable CMP-glucose 128, AST 175, ALT 122 Total CK-32 CRP-4.3 ESR-20 X-ray bilateral knees-No acute fracture or malalignment. Head CT-no acute intercranial abnormality With her workup here being negative discussed case wtih Dr. Amaro who recommends adding on [place] and Hepatitis panal and she may be d/c home with PCP follow up. Patient is ambulatory but having the joint pain Labs were added on and negative Patient updated on her labs in her imaging and plan her PCP follow-up and return for any new worsening symptoms. She may continue the medications are prescribed previously. Medical Records Medical records reviewed: Yes I reviewed the external patient's medical records. Vital Signs Vital Signs: Vital Signs Temperature 36.1 C L 08/18/25 14:00 Pulse Rate 84 08/18/25 14:00 Respiratory Rate 20 08/18/25 14:00 Blood Pressure 127/87 08/18/25 14:00 Pulse Oximetry 100 08/18/25 14:00 Oxygen Delivery Room Air 08/18/25 14:00 Temperature 36.1 C L 08/18/25 14:00 Pulse Rate 83 08/18/25 18:07 Respiratory Rate 18 08/18/25 18:07 Blood Pressure 131/89 08/18/25 18:07 Pulse Oximetry 97 08/18/25 18:07 Oxygen Delivery Room Air 08/18/25 14:00 Vitals reviewed Lab Data Lab results reviewed: Yes I reviewed the patient's lab results. 08/18/25 15:44 08/18/25 15:44 Labs: Lab Results 08/18/25 08/18/25 08/18/25 Range/Units 15:44 15:44 15:45 WBC 6.5 (4.5-10.0) K/mm3 RBC 4.35 (4.2-5.4) M/mm3 Hgb 13.0 (12.0-15.0) g/dL Hct 38.5 (37.0-47.0) % MCV 88.5 (80-100) fl MCH 29.9 (26-34) pg MCHC 33.8 (32-36) g/dl RDW 13.4 (11.5-14.5) % Plt Count 167 (150-375) k/mm3 MPV 9.8 (7.4-10.4) fl Immature Gran % (Auto) 0.6 H (0-0.5) % Neut % (Auto) 86.5 H (45.5-73.1) % Lymph % (Auto) 9.9 L (18.3-44.2) % [place] % (Auto) 2.8 (2.6-8.5) % Eos % (Auto) 0.0 (0-4.4) % Baso % (Auto) 0.2 (0.2-1.2) % Lymph # (Auto) 0.64 L (0.9-3.2) K/mm3 [place] # (Auto) 0.2 (0.1-0.6) K/mm3 Eos # (Auto) 0.0 (0-0.3) K/mm3 Baso # (Auto) 0.0 (0.0-0.1) K/mm3 Abs Immat Gran (auto) 0.04 H (0.00-0.031) K/mm3 Absolute Neuts (auto) 5.6 (1.3-6.7) K/mm3 Absolute Nucleated RBC 0.000 (0.0-0.012) K/mm3 Nucleated RBC % 0.0 (0.0-0.2) % ESR 20 (0-20) mm/hr Sodium 140 (137-145) mmol/L Potassium 4.5 (3.4-5.0) mmol/L Chloride 105 (98-107) mmol/L Carbon Dioxide 26 (22-30) mmol/L Anion Gap 9 (4-12) mmol/L BUN 11 (7-17) mg/dL Creatinine 0.78 (0.7-1.0) mg/dL Estim Creat Clear Calc Not Reportable Estimated GFR > 60 (59 - ) Glucose 128 H (65-110) mg/dL Calcium 9.4 (8.4-10.2) mg/dL Total Bilirubin 0.6 (0.2-1.3) mg/dL AST 175 H (14-36) U/L ALT 122 H (6-35) U/L Alkaline Phosphatase 113 (38-126) U/L Total Creatine Kinase 32 Cancelled (30-135) U/L C-Reactive Protein 4.3 H (<1.0) mg/dL Total Protein 7.5 (6.3-8.2) g/dL Albumin 4.2 (3.5-5.1) g/dL Urine Color (Yellow) Urine Appearance (Clear) Urine pH (5.0-9.0) Ur Specific Earle (1.001-1.035) Urine Protein (Negative) mg/dL Urine Glucose (UA) (Negative) mg/dL Urine Ketones (Negative) mg/dL Ur Blood (Man) (Negative) Urine Nitrate (Negative) Urine Bilirubin (Negative) Urine Urobilinogen (<2.0) mg/dL Leukocyte Esterase Rfl (Negative) MIKI/UL Urine RBC (0-2) /hpf Urine WBC (0-3) /hpf Ur Squamous Epith Cells (Few) /hpf Urine Bacteria /hpf Urine Casts Hyaline Casts (None) /lpf POC Urine HCG, Qual (Negative) Hepatitis A IgM Ab Negative (Negative) Hep Bs Antigen Negative (Negative) Hep B Core IgM Ab Negative (Negative) Hepatitis C Ab Screen Negative (Negative) Monoscreen Negative (Negative) 08/18/25 08/18/25 Range/Units 16:21 16:26 WBC (4.5-10.0) K/mm3 RBC (4.2-5.4) M/mm3 Hgb (12.0-15.0) g/dL Hct (37.0-47.0) % MCV (80-100) fl MCH (26-34) pg MCHC (32-36) g/dl RDW (11.5-14.5) % Plt Count (150-375) k/mm3 MPV (7.4-10.4) fl Immature Gran % (Auto) (0-0.5) % Neut % (Auto) (45.5-73.1) % Lymph % (Auto) (18.3-44.2) % [place] % (Auto) (2.6-8.5) % Eos % (Auto) (0-4.4) % Baso % (Auto) (0.2-1.2) % Lymph # (Auto) (0.9-3.2) K/mm3 [place] # (Auto) (0.1-0.6) K/mm3 Eos # (Auto) (0-0.3) K/mm3 Baso # (Auto) (0.0-0.1) K/mm3 Abs Immat Gran (auto) (0.00-0.031) K/mm3 Absolute Neuts (auto) (1.3-6.7) K/mm3 Absolute Nucleated RBC (0.0-0.012) K/mm3 Nucleated RBC % (0.0-0.2) % ESR (0-20) mm/hr Sodium (137-145) mmol/L Potassium (3.4-5.0) mmol/L Chloride (98-107) mmol/L Carbon Dioxide (22-30) mmol/L Anion Gap (4-12) mmol/L BUN (7-17) mg/dL Creatinine (0.7-1.0) mg/dL Estim Creat Clear Calc Estimated GFR (59 - ) Glucose (65-110) mg/dL Calcium (8.4-10.2) mg/dL Total Bilirubin (0.2-1.3) mg/dL AST (14-36) U/L ALT (6-35) U/L Alkaline Phosphatase (38-126) U/L Total Creatine Kinase (30-135) U/L C-Reactive Protein (<1.0) mg/dL Total Protein (6.3-8.2) g/dL Albumin (3.5-5.1) g/dL Urine Color Yellow (Yellow) Urine Appearance Clear (Clear) Urine pH 5.5 (5.0-9.0) Ur Specific [place] 1.021 (1.001-1.035) Urine Protein Trace (Negative) mg/dL Urine Glucose (UA) Negative (Negative) mg/dL Urine Ketones Negative (Negative) mg/dL Ur Blood (Man) Negative (Negative) Urine Nitrate Negative (Negative) Urine Bilirubin Negative (Negative) Urine Urobilinogen 0.2 (<2.0) mg/dL Leukocyte Esterase Rfl 1+ H (Negative) MIKI/UL Urine RBC 0-2 (0-2) /hpf Urine WBC 0-5 (0-3) /hpf Ur Squamous Epith Cells Moderate (Few) /hpf Urine Bacteria None seen /hpf Urine Casts 6-10 Hyaline Casts Present (None) /lpf POC Urine HCG, Qual Negative (Negative) Hepatitis A IgM Ab (Negative) Hep Bs Antigen (Negative) Hep B Core IgM Ab (Negative) Hepatitis C Ab Screen (Negative) Monoscreen (Negative) Imaging Data Radiologist's impression: Impressions Knee X-Ray 08/18/25 15:36 Impression: No acute fracture or malalignment. Knee X-Ray 08/18/25 15:39 Impression: No acute fracture or malalignment. Head CT 08/18/25 16:01 Impression: 1.No acute intracranial abnormality. Discharge Plan Discharge Clinical Impression: Elevated liver enzymes Joint pain Qualifiers: Joint pain location: unspecified Qualified Code(s): M25.50 - Pain in unspecified joint Patient Disposition: Home Condition: Stable Instructions: Antibiotic Form Additional Instructions: Continue the medications as prescribed, make sure you are getting plenty of hydration follow up with your PCP in 3-5 days the other tests that we ran will be back in 3-5 days IF you should develop any new or worsening symtoms return to the ER. Patient Language: Hebrew Prescriptions: No Action cetirizine [All Day Allergy (cetirizine)] 10 mg tablet 10 mg PO DAILY PRN (Reason: allergy symptoms) Follow-up/Referrals: Ace Shipman DO [Physician, Family Practice] - 3 Days UNKNOWN,DOCTOR [Primary Care Provider] Stand Alone Forms: Work/School Release IP Time of Disposition: 17:33
[2025-08-18 15:52] LABS: Hematocrit 38.5 % (37.0-47.0); Hemoglobin 13.0 g/dL (12.0-15.0); Immature Granulocyte Percent A 0.6 % (0-0.5); Lymphocytes Absolute Auto 0.64 K/mm3 (0.9-3.2); Mean Corpuscular HGB Conc 33.8 g/dl (32-36); Mean Corpuscular Hemoglobin 29.9 pg (26-34); Mean Corpuscular Volume 88.5 fl (80-100); Nucleated Red Blood Cells Absolute Auto 0.000 K/mm3 (0.0-0.012); Nucleated Red Blood Cells Perc 0.0 % (0.0-0.2); Platelet Count Result 167 k/mm3 (150-375); Red Blood Count 4.35 M/mm3 (4.2-5.4); White Blood Count 6.5 K/mm3 (4.5-10.0)
[2025-08-18 16:05] LABS: Alanine Aminotransferase 122 U/L (6-35); Albumin Level 4.2 g/dL (3.5-5.1); Alkaline Phosphatase 113 U/L (38-126); Anion Gap 9 mmol/L (4-12); Aspartate Amino Transferase 175 U/L (14-36); Bilirubin,Total 0.6 mg/dL (0.2-1.3); Blood Urea Nitrogen 11 mg/dL (7-17); Calcium 9.4 mg/dL (8.4-10.2); Carbon Dioxide 26 mmol/L (22-30); Chloride 105 mmol/L (98-107); Estimated Glomerular Filt Rate > 60; Glucose 128 mg/dL (65-110); Potassium 4.5 mmol/L (3.4-5.0); Sodium 140 mmol/L (137-145); Total Protein 7.5 g/dL (6.3-8.2)
[2025-08-18 16:15] LABS: CRP 4.3 mg/dL (<1.0); Creatine Kinase 32 U/L (30-135)
[2025-08-18 16:20] VITALS: BP 129/85; PULSE 81; RESP 16; O2SAT 97
[2025-08-18 16:28] LABS: BEDSIDEPREGUCG Negative (Negative)
[2025-08-18 16:36] LABS: Add Urine Microscopic? YES; Appearance Urine Clear (Clear); Glucose Urine UA Negative (Negative); Leukocyte Esterase Ur 1+ LEU/UL (Negative); Nitrate Urine Negative (Negative); Specific Grav Ur 1.021 (1.001-1.035)
[2025-08-18 18:07] VITALS: BP 131/89; PULSE 83; RESP 18; O2SAT 97
--- NOTE | 2025-08-18 18:07 | PC.NURSE ---
called lab and added additonal tests to blood work previously sent down
[2025-08-18 18:17] LABS: Negative Monotest Control Negative (Negative); Positive Monotest Control Positive (Positive)
[2025-08-18 18:48] LABS: Hepatitis B Surface Antigen Negative (Negative)
[2025-08-18 18:54] LABS: HAV RESULT Negative (Negative); Hepatitis B Core IgM Result Negative (Negative)
== END 2025-08-18 19:01 | disposition home or self-care (01) ==
PROVIDERS: Emergency Provider Nurse Practitioner Family
DX: M25.562 Pain in left knee (principal); M25.561 Pain in right knee; M25.532 Pain in left wrist; M25.531 Pain in right wrist; M79.671 Pain in right foot; R74.01 Elevation of levels of liver transaminase levels; N39.0 Urinary tract infection, site not specified; M17.0 Bilateral primary osteoarthritis of knee; Z90.49 Acquired absence of other specified parts of digestive tract
CPT/HCPCS: 36415; 70450; 73562; 80053; 80074; 81001; 81025; 82550; 85025; 85652; 86140; 86308; 99284